=== PATIENT | female | born 1960 | race Caucasian/White ===

== ENCOUNTER 2017-04-15 15:08 | Emergency (ER) | payer OTHER ==
[2017-04-15 15:16] VITALS: BP 154/90; PULSE 98; TEMP 98.2; BMI 41.1
--- NOTE | 2017-04-15 15:23 | PDOC ---
History of Present Illness - General Chief Complaint: Injury Stated Complaint: FALL/ LT FEET PAIN Time Seen by Provider: 04/15/17 15:21 History Source: Patient Exam Limitations: No Limitations - History of Present Illness Initial Comments: CHIEF COMPLAINT: 57 y/o female c/o left ankle pain s/p fall 4 days ago. HISTORY OF PRESENT ILLNESS: The patient admits to a slip and fall 4 days ago. She was able to get up and walk and has been walking since but has pain and swelling in her left foot and ankle. She denies head trauma, LOC, redness/ streaking to affected extremity, numbness/tingling to affected extremity. Vital signs on arrival are notable for pulse of 98. REVIEW OF SYSTEMS: GENERAL/CONSTITUTIONAL: No fever/chills. No weakness. No weight change. HEAD, EYES, EARS, NOSE AND THROAT: No change in vision. No ear pain or discharge. No sore throat. CARDIOVASCULAR: No chest pain or shortness of breath. RESPIRATORY: No cough, wheezing, or hemoptysis. GASTROINTESTINAL: No abd pain, nausea, vomiting, diarrhea. GENITOURINARY: No dysuria, frequency, or change in urination. MUSCULOSKELETAL: +left ankle pain and swelling. No neck or back pain. SKIN: No rash or easy bruising. NEUROLOGIC: No headache, vertigo, loss of consciousness, or loss of sensation. PHYSICAL EXAM: GENERAL: The patient is awake, alert, and fully oriented, in no acute distress. She is ambulatory with a cane. HEAD: Normal with no signs of trauma. ENT: Pupils equal, round and reactive to light, extraocular movements intact, sclera anicteric, conjunctiva clear. Neck supple. LUNGS: Clear to auscultation bilaterally. Normal excursion. No respiratory distress or use of accessory muscles. CV: RRR, S1/S2, no MRG. Cap refill < 2 sec. ABDOMEN: Soft, non-distended, non-tender even to deep palpation, no hepatomegaly or splenomegaly, no masses. EXTREMITIES: Left foot with minimal edema to lateral edge. Pain with palpation of lateral malleolus and arch of left foot. No erythema or streaking in affected extremity. No obvious deformities in affected extremity. Full ROM of left ankle and toes. NEUROLOGICAL: Normal speech, normal gait. CN II-XII grossly intact. PSYCH: Normal mood, normal affect. SKIN: Warm, dry, normal turgor, no rashes or lesions noted. Past History - Past Medical History Allergies/Adverse Reactions: Allergies Allergy/AdvReac Type Severity Reaction Status Date / Time No Known Allergies Allergy Verified 04/15/17 15:16 Home Medications: Ambulatory Orders Metformin HCl [Glucophage] 1 tab PO BID 07/28/14 Duloxetine HCl [Cymbalta -] 2 mg PO HS 05/03/15 Enalapril Maleate [Vasotec] 20 mg PO DAILY 05/03/15 Gabapentin [Neurontin] 300 mg PO HS 05/03/15 Hydroxychloroquine So4 [Plaquenil -] 200 mg PO BID 05/03/15 Nadolol 20 mg PO DAILY 05/03/15 Butalb/Acetaminophen/Caffeine [Ojulcl-Ooiarbsb-Pxeg 50-300-40] 1 tab PO PRN PRN 07/22/15 Famotidine [Pepcid -] 20 mg PO HS #30 tablet 07/23/15 Mag Carb/Al Hydrox/Alginic AC [Gaviscon Liquid] 30 ml PO ASDIR #0 oral.susp Pantoprazole Sodium [Protonix -] 40 mg PO DAILY #30 tablet.ec 07/23/15 Anemia: No Asthma: No Cancer: No Cardiac Disorders: No CVA: No COPD: No CHF: No Dementia: No Diabetes: Yes (NIDDM) GI Disorders: Yes (GASTRIC ULCER, IBS, H.PYLORI) Disorders: No HTN: Yes Hypercholesterolemia: No Liver Disease: No Suicide Attempt (Hx): No Seizures: No Thyroid Disease: No Other medical history: lupus - Surgical History Abdominal Surgery: No Appendectomy: No Cardiac Surgery: No Cholecystectomy: No Lung Surgery: No Neurologic Surgery: No Orthopedic Surgery: No - Psycho/Social/Smoking Cessation Hx Anxiety: No Suicidal Ideation: No Smoking Status: No Smoking History: Never smoked Have you smoked in the past 12 months: No Number of Cigarettes Smoked Daily: 0 If you are a former smoker, when did you quit?: 1993 Information on smoking cessation initiated: No Hx Alcohol Use: No Drug/Substance Use Hx: No Substance Use Type: None Hx Substance Use Treatment: No *Physical Exam - Vital Signs Last Vital Signs Temp Pulse Resp BP Pulse Ox 98.2 F 98 H 18 154/90 100 04/15/17 15:14 04/15/17 15:14 04/15/17 15:14 04/15/17 15:14 04/15/17 15:14 Medical Decision Making - Medical Decision Making A/P: 57 y/o female with left ankle injury. Plan is as follows: 1. left ankle xray Left ankle xray IMPRESSION: (Wet read) No acute fracture. Instructed the patient to follow RICE instructions. Provided EMMY bandaged. Suggested she f/u with her doctor in 1 week if no improvement in symptoms. The patient verbalizes understanding of all instructions, has no further questions and is awaiting discharge. *DC/Admit/Observation/Transfer Diagnosis at time of Disposition: Left ankle pain Qualifiers: Chronicity: acute Qualified Code(s): M25.572 - Pain in left ankle and joints of left foot - Discharge Dispostion Disposition: HOME Condition at time of disposition: Good - Referrals Referrals: Morenita Rios MD [Primary Care Provider] - Call tomorrow Dano Hilton MD [Staff Physician] - 1 week (iF no improvement in symptoms) - Patient Instructions Printed Discharge Instructions: How To Perform RICE (Rest, Ice, Compress, Elevate) Additional Instructions: Discharge INstructions: -Follow RICE instructions -Use EMMY bandage for comfort if needed -Return to the ER with any worsening of symptoms -Call Dr. Hilton and schedule follow up appointment if no improvement in 1 week
== END 2017-04-15 17:53 | disposition home or self-care (01) ==
LOC: JERFT 15:08
DX: M25.572 Pain in left ankle and joints of left foot (principal); W19.XXXA Unspecified fall, initial encounter; Y93.89 Activity, other specified; Y92.89 Other specified places as the place of occurrence of the external cause; I10 Essential (primary) hypertension; E11.9 Type 2 diabetes mellitus without complications; Z79.84 Long term (current) use of oral hypoglycemic drugs
CPT/HCPCS: 73610-TC-LT; 73630-TC-LT; 99281-25

== ENCOUNTER 2018-06-15 10:07 | Emergency (ER) | payer MEDICARE, OTHER ==
[2018-06-15 10:22] VITALS: TEMP 99.3; BMI 41.4
[2018-06-15] MEDS ORDERED: SODIUM CHLORIDE 1,000 ML IV STA (10:44)
[2018-06-15] MEDS ORDERED: CLINDAMYCIN HCL 300 MG CAPSULE PO ONE (10:44)
[2018-06-15] MEDS ORDERED: KETOROLAC TROMETHAMINE 30 MG/1 ML VIAL IVPUSH ONE (10:46)
[2018-06-15] MEDS ORDERED: CLINDAMYCIN HCL 150 MG CAPSULE (FP) ONE (10:58)
[2018-06-15] MEDS ORDERED: KETOROLAC TROMETHAMINE 30 MG/1 ML VIAL ONE (10:58)
--- NOTE | 2018-06-15 11:13 | PDOC ---
History of Present Illness - General History Source: Patient, Old Records Exam Limitations: No Limitations - History of Present Illness Initial Comments: 06/15/18 11:23 The patient is a 58-year-old female, with a significant PMH of HTN, HLD, NIDDM, gastric ulcer, IBS, and H. pylori, who presents to the ED with right-sided facial swelling that began yesterday. The patient went to visit her dentist yesterday for upper tooth pain and was prescribed clindamycin; took 3 doses so far. She woke up this morning and noted that her face was increasingly more swollen. Patient decided to come to the ED for further evaluation. She also reports that she has been experiencing an intermittent pins and needles sensation in the left-side of her chest that is worsened by deep inspiration, nonradiating, nonexertional, and reproducible with palpation. The patient denies shortness of breath, headache and dizziness. Denies fever, chills, cough, nausea, vomiting, diarrhea and constipation. Allergies: NKA Past surgical history: None reported. Social history: No reported. PCP: Dr. Morenita Rios <Emerald Haile - Last Filed: 06/15/18 11:46> - General History Source: Patient, Old Records Exam Limitations: No Limitations <Fernandez Garner - Last Filed: 06/15/18 12:13> - General Chief Complaint: Chest Pain Stated Complaint: CHEST PAIN Time Seen by Provider: 06/15/18 10:34 Past History <Emerald Haile - Last Filed: 06/15/18 11:46> - Past Medical History Anemia: No Asthma: No Cancer: No Cardiac Disorders: No CVA: No COPD: No CHF: No Dementia: No Diabetes: Yes (NIDDM) GI Disorders: Yes (GASTRIC ULCER, IBS, H.PYLORI) Disorders: No HTN: Yes Hypercholesterolemia: No Liver Disease: No Seizures: No Thyroid Disease: No Other medical history: LUPUS - Surgical History Abdominal Surgery: No Appendectomy: No Cardiac Surgery: No Cholecystectomy: No Lung Surgery: No Neurologic Surgery: No Orthopedic Surgery: No - Suicide/Smoking/Psychosocial Hx Smoking Status: No Smoking History: Never smoked Have you smoked in the past 12 months: No Number of Cigarettes Smoked Daily: 0 If you are a former smoker, when did you quit?: 1993 Hx Alcohol Use: No Drug/Substance Use Hx: No Substance Use Type: None Hx Substance Use Treatment: No <Fernandez Garner - Last Filed: 06/15/18 12:13> - Past Medical History Allergies/Adverse Reactions: Allergies Allergy/AdvReac Type Severity Reaction Status Date / Time No Known Allergies Allergy Verified 06/15/18 10:20 Home Medications: Ambulatory Orders Metformin HCl [Glucophage] 1 tab PO BID 07/28/14 Enalapril Maleate [Vasotec] 20 mg PO DAILY 05/03/15 Gabapentin [Neurontin] 800 mg PO TID 05/03/15 Hydroxychloroquine So4 [Plaquenil -] 200 mg PO BID 05/03/15 Nadolol 20 mg PO DAILY 05/03/15 Mag Carb/Aluminum Hydrox/Algin [Gaviscon Liquid] 30 ml PO ASDIR #0 oral.susp Naproxen 500 mg PO BID PRN #20 tablet 06/15/18 Review of Systems - Review of Systems Able to Perform ROS?: Yes Comments:: 06/15/18 11:23 GENERAL/CONSTITUTIONAL: No fever or chills. No weakness. HEAD, EYES, EARS, NOSE AND THROAT: No change in vision. No ear pain or discharge. No sore throat. CARDIOVASCULAR: (+)Chest pain. No shortness of breath. RESPIRATORY: No cough, wheezing, or hemoptysis. GASTROINTESTINAL: No nausea, vomiting, diarrhea or constipation. GENITOURINARY: No dysuria, frequency, or change in urination. MUSCULOSKELETAL: No joint or muscle swelling or pain. No neck or back pain. SKIN: (+)Right-sided facial induration. NEUROLOGIC: No headache, vertigo, loss of consciousness, or change in strength/ sensation. ENDOCRINE: No increased thirst. No abnormal weight change. HEMATOLOGIC/LYMPHATIC: No anemia, easy bleeding, or history of blood clots. ALLERGIC/IMMUNOLOGIC: No hives or skin allergy. <Emerald Haile - Last Filed: 06/15/18 11:46> *Physical Exam - Vital Signs Last Vital Signs Temp Pulse Resp BP Pulse Ox 99.3 F 82 18 156/73 99 06/15/18 10:11 06/15/18 10:11 06/15/18 10:11 06/15/18 10:11 06/15/18 10:42 - Physical Exam Comments: 06/15/18 11:26 GENERAL: Awake, alert, and fully oriented, in no acute distress HEAD: No signs of trauma EYES: PERRLA, EOMI, sclera anicteric, conjunctiva clear ENT: Auricles normal inspection, hearing grossly normal, nares patent, oropharynx clear without exudates. Moist mucosa NECK: Normal ROM, supple, no lymphadenopathy, JVD, or masses LUNGS: Breath sounds equal, clear to auscultation bilaterally. No wheezes, and no crackles HEART: (+)Reproducible chest pain to palpation. Regular rate and rhythm, normal S1 and S2, no murmurs, rubs or gallops ABDOMEN: Soft, nontender, normoactive bowel sounds. No guarding, no rebound. No masses EXTREMITIES: Normal range of motion, no edema. No clubbing or cyanosis. No cords, erythema, or tenderness NEUROLOGICAL: Cranial nerves II through XII grossly intact. Normal speech. SKIN: (+)Right-sided facial induration, no purulence, 4x4 in size. Warm, Dry, normal turgor. <Emerald Haile - Last Filed: 06/15/18 11:46> - Vital Signs Last Vital Signs Temp Pulse Resp BP Pulse Ox 99.3 F 82 18 156/73 99 06/15/18 10:11 06/15/18 10:11 06/15/18 10:11 06/15/18 10:11 06/15/18 10:42 <Fernandez Garner - Last Filed: 06/15/18 12:13> Heart Score/ECG Review #1 ECG reviewed & interpreted by me at: 10:25 06/15/18 11:46 NSR 82, no std/set, normal axis, normal intervals, QTC 464 msec, poor R wave progression <Fernandez Garner - Last Filed: 06/15/18 12:13> ED Treatment Course - LABORATORY CBC & Chemistry Diagram: 06/15/18 10:50 06/15/18 10:50 - Medications Given in the ED: ED Medications Discontinued Medications Generic Name Dose Route Start Last Admin Trade Name Freq PRN Reason Stop Dose Admin Clindamycin HCl 300 mg 06/15/18 10:44 06/15/18 11:09 Cleocin - PO 06/15/18 10:45 300 mg ONCE ONE Administration Ketorolac Tromethamine 30 mg 06/15/18 10:46 06/15/18 11:09 Toradol Injection - IVPUSH 06/15/18 10:47 30 mg ONCE ONE Administration <Emerald Haile - Last Filed: 06/15/18 11:46> - LABORATORY CBC & Chemistry Diagram: 06/15/18 10:50 06/15/18 10:50 - RADIOLOGY Radiology Studies Ordered: Category Date Time Status CHEST X-RAY PORTABLE* [RAD] Stat Radiology 06/15/18 10:50 Ordered <Annie Garnerel - Last Filed: 06/15/18 12:13> Medical Decision Making - Medical Decision Making 06/15/18 11:06 A portion of this note was written by my scribe, under my supervision. Vital Signs Temp Pulse Resp BP Pulse Ox 99.3 F 82 18 156/73 99 06/15/18 10:11 06/15/18 10:11 06/15/18 10:11 06/15/18 10:11 06/15/18 10:42 58-year-old female with past medical history of diabetes, lupus on immunosuprresants presents with right facial induration since yesterday. Patient did not have any recent dental work done but noted that he was developing some right facial swelling. She seen the dentist yesterday who prescribed clindamycin and has taken her dose of medications. However, progressive swollen. No fevers or chills. Took 3 doses of clindamycin and came to the ER. Also, patient reported an atypical left sided chest pain with intermittent discomfort. States is tingling and comes and goes. Not exertional. Reproducible with palpation. No cough. 06/15/18 11:35 I have low suspicion for acute coronary syndrome and I suspect that this is likely atypical chest pain. I have more concerns for patient's facial infection. I do not suspect an abscess but do suspect facial cellulitis. Patient is immunosuppressed and already taking oral antibiotics.. We'll obtain labs including lactic acid and a blood culture. We'll need to potentially admit the patient given her immunosuppressant status and progression of disease despite outpatient watch. 06/15/18 12:12 CBC, BMP 06/15/18 10:50 06/15/18 10:50 CMP Sodium 140 mmol/L (136-145) 06/15/18 10:50 Potassium 4.1 mmol/L (3.5-5.1) 06/15/18 10:50 Chloride 108 mmol/L (98-107) H 06/15/18 10:50 Carbon Dioxide 25 mmol/L (21-32) 06/15/18 10:50 Anion Gap 7 MMOL/L (8-16) L 06/15/18 10:50 BUN 11 mg/dL (7-18) 06/15/18 10:50 Creatinine 0.8 mg/dL (0.55-1.3) 06/15/18 10:50 Creat Clearance w eGFR > 60 (>60) 06/15/18 10:50 Random Glucose 132 mg/dL (74-106) H 06/15/18 10:50 Lactic Acid 1.4 mmol/L (0.4-2.0) 06/15/18 10:56 Calcium 8.4 mg/dL (8.5-10.1) L 06/15/18 10:50 Total Bilirubin 0.9 mg/dL (0.2-1.0) 06/15/18 10:50 AST 26 U/L (15-37) 06/15/18 10:50 ALT 24 U/L (13-61) 06/15/18 10:50 Alkaline Phosphatase 85 U/L (45-117) 06/15/18 10:50 Creatine Kinase 78 IU/L (26-192) 06/15/18 10:50 Troponin I < 0.02 ng/ml (0.00-0.05) 06/15/18 10:50 Total Protein 7.5 g/dl (6.4-8.2) 06/15/18 10:50 Albumin 3.4 g/dl (3.4-5.0) 06/15/18 10:50 Urine Test Results Urine Color Yellow 06/15/18 10:56 Urine Appearance Clear 06/15/18 10:56 Urine pH 7.0 (5.0-8.0) 06/15/18 10:56 Ur Specific [place] 1.023 (1.001-1.035) 06/15/18 10:56 Urine Protein Negative (NEGATIVE) 06/15/18 10:56 Urine Glucose (UA) Negative (NEGATIVE) 06/15/18 10:56 Urine Ketones Negative (NEGATIVE) 06/15/18 10:56 Urine Blood 2+ (NEGATIVE) H 06/15/18 10:56 Urine Nitrite Negative (NEGATIVE) 06/15/18 10:56 Urine Bilirubin Negative (<2.0 mg/dL) 06/15/18 10:56 Ur Leukocyte Esterase Negative (NEGATIVE) 06/15/18 10:56 Ur Epithelial Cells Few /HPF (FEW) 06/15/18 10:56 Urine Mucus Rare 06/15/18 10:56 Chest xray reviewed. No acute findings. The patient likely has very mild facial cellulitis. She is nontoxic appearing with some mild induration. No clinical findings for fluctuance. Patient's troponin is negative. Again, I have very little suspicion for acute coronary syndrome. Given that the patient only taken 3 doses of clindamycin, I advised that the patient should continue with the clindamycin and to observe her course. If the symptoms worsen over the next 24-48 hours that she should return to the ER. Patient is agreement with the plan and like to go home. <Fernandez Garner - Last Filed: 06/15/18 12:13> *DC/Admit/Observation/Transfer - Attestations Scribe Attestion: 06/15/18 11:25 Documentation prepared by Emerald Haile, acting as phlebotomist medical lab assistant for Fernandez Garner MD. <Emerald Haile - Last Filed: 06/15/18 11:46> - Discharge Dispostion Decision to Admit order: No <Fernandez Garner - Last Filed: 06/15/18 12:13> Diagnosis at time of Disposition: Atypical chest pain Cellulitis Qualifiers: Site of cellulitis: face Qualified Code(s): L03.211 - Cellulitis of face - Discharge Dispostion Disposition: HOME Condition at time of disposition: Stable - Prescriptions Prescriptions: Naproxen 500 mg PO BID PRN #20 tablet PRN Reason: Pain - Referrals Referrals: Morenita Rios MD [Primary Care Provider] - - Patient Instructions Printed Discharge Instructions: DI for Cellulitis -- Adult, DI for Atypical Chest Pain Additional Instructions: Please continue taking your clindamycin as prescribed by your dentist. Please complete its course. Take 500 mg naproxen every 12 hours as needed for pain. Please drink plenty of fluids. If you notice any worsening symptoms over the course of 24 to 48 hours, please call your doctor or return to the ER. - Post Discharge Activity
[2018-06-15 11:24] LABS: HCG,QUALITATIVE URINE Negative
[2018-06-15 11:25] LABS: URINE APPEARANCE CLEAR; URINE BILIRUBIN NEGATIVE (<2.0 mg/dL); URINE COLOR YELLOW; URINE GLUCOSE (UA) NEGATIVE (NEGATIVE); URINE KETONE NEGATIVE (NEGATIVE); URINE LEUK ESTERASE NEGATIVE (NEGATIVE); URINE NITRITE NEGATIVE (NEGATIVE); URINE PROTEIN NEGATIVE (NEGATIVE); URINE UROBILINOGEN NEGATIVE mg/dL (0.2-1.0)
[2018-06-15 11:29] LABS: BASO % 0.3 % (0-2.0); EOS % 0.7 % (0-4.5); HEMATOCRIT 42.3 % (32.4-45.2); HEMOGLOBIN 13.7 GM/dL (10.7-15.3); LYMPH % 14.7 % (8-40); MCH 26.5 pg (25.7-33.7); MCHC 32.4 g/dl (32.0-36.0); MEAN CELL VOLUME 81.9 fl (80-96); MEAN PLT VOLUME 9.9 fl (7.5-11.1); MONO % 6.8 % (3.8-10.2); NEUT % 77.5 % (42.8-82.8); PLATELET COUNT 141 K/MM3 (134-434); RBC 5.16 M/mm3 (3.60-5.2); RDW 14.2 % (11.6-15.6)
[2018-06-15 11:33] LABS: EPI CELLS FEW /HPF (FEW); URINE MUCUS RARE; YEAST RARE
[2018-06-15 11:44] LABS: ALBUMIN 3.4 g/dl (3.4-5.0); ANION GAP 7 MMOL/L (8-16); BLOOD UREA NITROGEN 11 mg/dL (7-18); CALCIUM 8.4 mg/dL (8.5-10.1); CHLORIDE 108 mmol/L (98-107); CO2 25 mmol/L (21-32); CREATININE 0.8 mg/dL (0.55-1.3); GLUCOSE,RANDOM 132 mg/dL (74-106); POTASSIUM 4.1 mmol/L (3.5-5.1); SGOT/AST 26 U/L (15-37); SGPT/ALT 24 U/L (13-61); SODIUM 140 mmol/L (136-145)
[2018-06-15 11:48] LABS: ALK PHOS 85 U/L (45-117); BILIRUBIN,TOTAL 0.9 mg/dL (0.2-1.0); TOT PROT 7.5 g/dl (6.4-8.2)
[2018-06-15 12:32] VITALS: BP 136/81; PULSE 74
--- NOTE | 2018-06-16 21:36 | EKG ---
Test Reason : Blood Pressure : / mmHG Vent. Rate : 082 BPM Atrial Rate : 082 BPM P-R Int : 164 ms QRS Dur : 086 ms QT Int : 398 ms P-R-T Axes : 026 -25 008 degrees QTc Int : 464 ms POOR DATA QUALITY, INTERPRETATION MAY BE ADVERSELY AFFECTED NORMAL SINUS RHYTHM POSSIBLE ANTERIOR INFARCT , AGE UNDETERMINED ABNORMAL ECG WHEN COMPARED WITH ECG OF 16-APR-2013 11:01, NO SIGNIFICANT CHANGE WAS FOUND Confirmed by SHAI CAMACHO MD ([id number]) on 06/16/2018 9:36:48 PM Referred By: Confirmed By:SHAI CAMACHO MD
== END 2018-06-15 12:32 | disposition home or self-care (01) ==
LOC: JER 10:07
PROC: 3E0333Z Introduction of Anti-inflammatory into Peripheral Vein, Percutaneous Approach (ICD-10-PCS; principal; 2018-06-15)
DX: R07.89 Other chest pain (principal); L03.211 Cellulitis of face
CPT/HCPCS: 36415; 71045-TC-FY; 80053; 81003; 81015; 82550; 83605; 84484; 84703; 85025; 87040; 87086; 93005; 93010; 96374; 99285-25; J7030

== ENCOUNTER → 2019-04-16 | Day surgery (SDC) | payer MEDICARE, OTHER ==
--- NOTE | 2019-04-17 15:29 | PATH ---
Cytology Non-Gynecological Report Patient Name: GUILLAUME PUGA [facility]. Rec. #: [id number] /Age/Gender: 1960 (Age: 59) / F Account: [id number] Location: RADIOLOGY INTER Taken: 04/16/2019 Received: 04/16/2019 Reported: 04/17/2019 Physicians: Kiera Finnegan M.D. Specimen(s) Received LEFT THYROID LOBE Clinical History Left lobe, 1.23 x 1.17 x 1.19 cm Final Diagnosis THYROID, LEFT LOBE, FINE NEEDLE ASPIRATION: SATISFACTORY FOR EVALUATION. BETHESDA CLASS II: BENIGN. CYTOLOGIC FINDINGS ARE CONSISTENT WITH A BENIGN FOLLICULAR NODULE. SMALL FOLLICULAR CELLS AND ABUNDANT THIN COLLOID PRESENT. Electronically Signed Maya Florentino M.D. Gross Description Received are eight direct smears, four of which are air-dried and Diff-Quik stained, and four of which are alcohol fixed and Pap stained. Also received is 20 ml of bloody formalin from which one cellblock is prepared.
== END | disposition home or self-care (01) ==
LOC: JRADIR 09:22
PROVIDERS: ATTEND Internal Medicine
PROC: 0G9G3ZX Drainage of Left Thyroid Gland Lobe, Percutaneous Approach, Diagnostic (ICD-10-PCS; principal; 2019-04-16)
DX: E04.1 Nontoxic single thyroid nodule (principal)
CPT/HCPCS: 76942; 88173; 88305-TC

== ENCOUNTER 2019-07-02 12:27 | Inpatient (IN) | payer MEDICARE, OTHER ==
--- NOTE | 2019-07-02 12:32 | PDOC ---
Rapid Medical Evaluation Time Seen by Provider: 07/02/19 12:29 Medical Evaluation: Allergies Allergy/AdvReac Type Severity Reaction Status Date / Time No Known Allergies Allergy Verified 06/15/18 10:20 07/02/19 12:29 CC: sent by PMD for hernia evaluation PE: Obese abdomen. Orders: labs, urine Patient will proceed to ER for further evaluation. Discharge Disposition - Diagnosis Abdominal pain - Referrals - Patient Instructions - Post Discharge Activity
[2019-07-02 13:38] LABS: BASO % 1.2 % (0-2.0); EOS % 0.5 % (0-4.5); HEMATOCRIT 42.8 % (32.4-45.2); HEMOGLOBIN 14.1 GM/dL (10.7-15.3); LYMPH % 21.3 % (8-40); MCHC 32.9 g/dl (32.0-36.0); MEAN CELL VOLUME 82.2 fl (80-96); MEAN PLT VOLUME 9.8 fl (7.5-11.1); MONO % 7.3 % (3.8-10.2); NEUT % 69.7 % (42.8-82.8); PLATELET COUNT 182 K/MM3 (134-434); RBC 5.21 M/mm3 (3.60-5.2); RDW 14.7 % (11.6-15.6); WHITE BLOOD COUNT 6.2 K/mm3 (4.0-10.0)
[2019-07-02 13:45] LABS: INR 0.99 (0.83-1.09); PROTHROMBIN TIME (PATIENT) 11.7 SEC (9.7-13.0)
[2019-07-02] MEDS ORDERED: SODIUM CHLORIDE 1,000 ML IV SCH (13:45)
--- NOTE | 2019-07-02 13:56 | PDOC ---
History of Present Illness - General Chief Complaint: Pain Stated Complaint: SENT BY PCP/ HERNIA Time Seen by Provider: 07/02/19 12:29 History Source: Patient, Old Records Exam Limitations: No Limitations - History of Present Illness Initial Comments: HPI: 59 y/o female presenting to [facility] ER complaining of periumbilical pain for the past week. Described as sharp in nature. Worse when coughing. Also noticed a small mass in the area. Outpatient CTAB was obtained yesterday by pt's PCP. Sent to ED today after scan revealed fat and fluid containing umbilical hernia. Denies nausea, vomiting, diarrhea, bloody stool, or change in stool color. Last BM was this morning. Last oral intake at approx. 08:00 this morning. Medical Hx: - HTN - HLD - NIDDM - Gastric ulcer - IBS - H. pylori Surgical Hx: - - Remote history of previous hernia repair Review of Systems: In addition to that documented in the HPI above, the additional ROS was obtained : Constitutional- Denies fevers or chills Head- Denies vision changes ENMT- Denies sore throat CV- Denies chest pain Resp- Denies SOB GI- Denies vomiting or diarrhea - Denies painful urination, hematuria MSK- Denies recent trauma Skin- Denies new rashes Neuro- Denies new numbness or tingling or weakness Endocrine- Denies polyuria Heme- Denies bleeding or bruising Physical Examination: Constitutional- Adult female in no acute distress or obvious discomfort. Morbidly obese body habitus. Found semi-fowlers on hospital hallway bed. Answered all questions appropriately and completely. Speech was non-labored, non -pressured. Head- Normocephalic. No obvious external signs of trauma. Cardiovascular / Chest- Regular rate and regular rhythm. No murmur, rubs, clicks , or gallops. Peripheral pulses- radial pulses full. Respiratory- Breathing unlabored. Equal chest rise and fall. Clear to auscultation bilaterally. No stridor, no wheezing, no rhonchi. Gastrointestinal- abdomen exam limited by large pannus. Tender periumbilically with palpable mass. No pulsatile masses. No overlying skin lesions or obvious signs of trauma. Post surgical scar to midline overlying supra-pubic region. Neuro- Alert and oriented x4. Moving all four extremities spontaneously. Skin- Warm, dry, and intact. Psych- Affect- appropriate. Mood- normal. MDM: *Reviewed vital signs, nursing notes, and prior visit documentation (if available). 59 y/o female presenting with periumbilical pain and umbilical hernia noted on outpatient CTAB. Afebrile. Vitals remarkable for mild tachycardia. Ordered LR drip. Will trend. Physical exam as described above. Unable to reduce hernia. Will obtain surgical consult. Ordered pre-ob labs. 02 Jul 2019 14:15 In person discussion with ABRAHAM Allison. Verbally appraised of the pts HPI, ED course, and current plan of management. Evaluated the pt in the department. Will discuss pt with Dr. Ballard for possible surgical intervention tomorrow. 02 Jul 2019 14:[address] Rios. Verbally appraised of the pts HPI, ED course, and current plan of management. Will admit pt to med/ surg. Edwin Wetson M.D., PGY2 Emergency Medicine Resident Past History - Past Medical History Allergies/Adverse Reactions: Allergies Allergy/AdvReac Type Severity Reaction Status Date / Time No Known Allergies Allergy Verified 07/02/19 12:33 Home Medications: Ambulatory Orders Metformin HCl [Glucophage] 1 tab PO BID 07/28/14 Enalapril Maleate [Vasotec] 20 mg PO DAILY 05/03/15 Gabapentin [Neurontin] 800 mg PO TID 05/03/15 Hydroxychloroquine So4 [Plaquenil -] 200 mg PO BID 05/03/15 Nadolol 20 mg PO DAILY 05/03/15 Mag Carb/Aluminum Hydrox/Algin [Gaviscon Liquid] 30 ml PO ASDIR #0 oral.susp Naproxen 500 mg PO BID PRN #20 tablet 06/15/18 Anemia: No Asthma: No Cancer: No Cardiac Disorders: No CVA: No COPD: No CHF: No Dementia: No Diabetes: Yes (NIDDM) GI Disorders: Yes (GASTRIC ULCER, IBS, H.PYLORI) Disorders: No HTN: Yes Hypercholesterolemia: No Liver Disease: No Seizures: No Thyroid Disease: No Other medical history: obesity - Surgical History Abdominal Surgery: No Appendectomy: No Cardiac Surgery: No Cholecystectomy: No Lung Surgery: No Neurologic Surgery: No Orthopedic Surgery: No - Psycho Social/Smoking Cessation Hx Smoking Status: No Smoking History: Never smoked Have you smoked in the past 12 months: No Number of Cigarettes Smoked Daily: 0 If you are a former smoker, when did you quit?: 1993 Information on smoking cessation initiated: No Hx Alcohol Use: No Drug/Substance Use Hx: No Substance Use Type: None Hx Substance Use Treatment: No *Physical Exam - Vital Signs Last Vital Signs Temp Pulse Resp BP Pulse Ox 98 F 113 H 19 129/94 99 07/02/19 12:30 07/02/19 12:30 07/02/19 12:30 07/02/19 12:30 07/02/19 12:30 ED Treatment Course - LABORATORY CBC & Chemistry Diagram: 07/02/19 13:27 07/02/19 13:27 - ADDITIONAL ORDERS Additional order review: Laboratory Results 07/02/19 13:27 PT with INR 11.70 INR 0.99 07/02/19 13:27 RBC 5.21 H MCV 82.2 MCHC 32.9 RDW 14.7 MPV 9.8 Neutrophils % 69.7 Lymphocytes % 21.3 D Monocytes % 7.3 Eosinophils % 0.5 Basophils % 1.2 - RADIOLOGY Radiology Studies Ordered: Category Date Time Status CHEST PA & LAT [RAD] Stat Radiology 07/02/19 13:07 Ordered - Medications Given in the ED: ED Medications Discontinued Medications Generic Name Dose Route Start Last Admin Trade Name Geneq PRN Reason Stop Dose Admin Sodium Chloride 1,000 mls @ 100 mls/hr 07/02/19 13:45 07/02/19 13:53 Normal Saline - IV Not Given ASDIR [facility] Discharge - Discharge Information Problems reviewed: Yes Clinical Impression/Diagnosis: Umbilical hernia without obstruction and without gangrene Abdominal pain Qualifiers: Abdominal location: periumbilical Qualified Code(s): R10.33 - Periumbilical pain Condition: Stable - Admission Yes - Follow up/Referral - Patient Discharge Instructions - Post Discharge Activity
[2019-07-02] MEDS ORDERED: LACTATED RINGERS SOLUTION 1,000 ML/1,000 ML INFUS.BAG IV SCH ×2 (14:00→14:41)
[2019-07-02 14:02] LABS: ALBUMIN 3.8 g/dl (3.4-5.0); BILIRUBIN,TOTAL 0.6 mg/dL (0.2-1); BLOOD UREA NITROGEN 13.8 mg/dL (7-18); CALCIUM 8.9 mg/dL (8.5-10.1); CREATININE 0.8 mg/dL (0.55-1.3); POTASSIUM 3.9 mmol/L (3.5-5.1); TOT PROT 7.8 g/dl (6.4-8.2)
--- NOTE | 2019-07-02 14:10 | PDOC ---
Attending Attestation - Resident Resident Name: Edwin Weston - ED Attending Attestation I have performed the following: I have examined & evaluated the patient, The case was reviewed & discussed with the resident, I agree w/resident's findings & plan, Exceptions are as noted - HPI HPI: 07/02/19 59-year-old female complains of atraumatic periumbilical pain and swelling. Patient underwent an outpatient CT 24 hours previously which revealed a fat and air containing umbilical hernia without presence of bowel. - Physicial Exam PE: 07/02/19 14:09 Alert, obese, in no distress normocephalic, atraumatic PERRLA, EOMI, no scleral icterus CTA RRR Abdomen soft, nondistended, nonreducible incarcerated umbilical hernia is noted + - Medical Decision Making 07/02/19 14:10 Patient is a 59-year-old female who presents with incarcerated umbilical hernia containing fat and air only. Will consult surgery. We will keep n.p.o. Will hydrate. Likely admission to the OR.
--- NOTE | 2019-07-02 14:37 | CONSULT ---
- Consultation REQUESTING PROVIDER: CONSULT REQUEST: We have been asked to surgically evaluate this patient for Umbilical hernia/abd pain PCP: Morenita Ross HISTORY OF PRESENT ILLNESS: 59yo F presented to the ED after complaining of abd pain for the past week, she had a CT abd/pel and was told that she had an incarcerated to the hernia, and was told to go to the ED as her pain wasn't improving. Pt states that she has pain around her umbilicus that is worse with standing and straining. Pt denies any n/v, fever, chills. Pt had previous hernia repair 31 years ago "possibly around her scar". PMHx: HTN, DM, PSHx: , ventral hernia repair Home Medications Medication Instructions Recorded Metformin HCl [Glucophage] 1 tab PO BID 07/28/14 Enalapril Maleate [Vasotec] 20 mg PO DAILY 05/03/15 Gabapentin [Neurontin] 800 mg PO TID 05/03/15 Hydroxychloroquine So4 [Plaquenil 200 mg PO BID 05/03/15 -] Nadolol 20 mg PO DAILY 05/03/15 Mag Carb/Aluminum Hydrox/Algin 30 ml PO ASDIR #0 oral.susp 07/23/15 [Gaviscon Liquid] Naproxen 500 mg PO BID PRN #20 tablet 06/15/18 Allergies Allergy/AdvReac Type Severity Reaction Status Date / Time No Known Allergies Allergy Verified 07/02/19 12:33 REVIEW OF SYSTEMS: CONSTITUTIONAL: Absent: fever, chills, diaphoresis, generalized weakness, malaise, loss of appetite, weight change CARDIOVASCULAR: Absent: chest pain, syncope RESPIRATORY: Absent: cough, shortness of breath GASTROINTESTINAL: Absent: abdominal distension, nausea, vomiting, diarrhea, constipation, melena , hematochezia PHYSICAL EXAM: GENERAL: Awake, alert, and fully oriented, in no acute distress. HEAD: Normal with no signs of trauma. EYES: PERRL, sclera anicteric, conjunctiva clear. NECK: Normal ROM, supple without lymphadenopathy, JVD, or masses. LUNGS: Breathing comfortably, No accessory muscle use. ABDOMEN: Soft, epigastric tenderness, 1.5cm umbilical defect, not distended, no guarding, no rebound, no masses. No organomegaly. MUSCULOSKELETAL: Normal ROM at all joints. No bony deformities or tenderness. No CVA tenderness. NEUROLOGICAL: Normal speech, gait not observed. PSYCH: Cooperative. Good eye contact. Appropriate mood and affect. SKIN: Warm, dry, normal turgor, no rashes or lesions noted. Vital Signs Temperature 98 F 07/02/19 12:30 Pulse Rate 113 H 07/02/19 12:30 Respiratory Rate 19 07/02/19 12:30 Blood Pressure 129/94 07/02/19 12:30 O2 Sat by Pulse Oximetry (%) 99 07/02/19 12:30 Lab Results WBC 6.2 K/mm3 (4.0-10.0) 07/02/19 13:27 RBC 5.21 M/mm3 (3.60-5.2) H 07/02/19 13:27 Hgb 14.1 GM/dL (10.7-15.3) 07/02/19 13:27 Hct 42.8 % (32.4-45.2) 07/02/19 13:27 MCV 82.2 fl (80-96) 07/02/19 13:27 MCHC 32.9 g/dl (32.0-36.0) 07/02/19 13:27 RDW 14.7 % (11.6-15.6) 07/02/19 13:27 Plt Count 182 K/MM3 (134-434) 07/02/19 13:27 Sodium 143 mmol/L (136-145) 07/02/19 13:27 Potassium 3.9 mmol/L (3.5-5.1) 07/02/19 13:27 Chloride 110 mmol/L (98-107) H 07/02/19 13:27 Carbon Dioxide 25 mmol/L (21-32) 07/02/19 13:27 Anion Gap 9 MMOL/L (8-16) 07/02/19 13:27 BUN 13.8 mg/dL (7-18) 07/02/19 13:27 Creatinine 0.8 mg/dL (0.55-1.3) 07/02/19 13:27 Random Glucose 141 mg/dL (74-106) H 07/02/19 13:27 Calcium 8.9 mg/dL (8.5-10.1) 07/02/19 13:27 INR 0.99 (0.83-1.09) 07/02/19 13:27 CT abd/pel: Fat containing umbilical hernia with evidence for incarceration. No bowel is contained within the hernia sac. Problem List - Problems (1) Incarcerated umbilical hernia Assessment/Plan: Plan -will schedule pt for umbilical hernia repair tomorrow. -npo after midnight -medical clearance Pt seen and discussed with Dr. Ballard who agrees with plan. Code(s): K42.0 - UMBILICAL HERNIA WITH OBSTRUCTION, WITHOUT GANGRENE
[2019-07-02] MEDS ORDERED: ACETAMINOPHEN 500 MG TABLET (FP) PO ONE (15:18)
[2019-07-02 17:19] VITALS: BMI 42.3
[2019-07-02] MEDS ORDERED: GABAPENTIN 400 MG CAPSULE (FP) PO ONE (20:48)
--- NOTE | 2019-07-02 22:37 | HP ---
Admitting History and Physical - Primary Care Physician PCP: Morenita Rios - Admission Chief Complaint: abd pain History of Present Illness: HPI: 59 y/o female presenting to [facility] ER complaining of periumbilical pain for the past week. Described as sharp in nature. Worse when coughing. Also noticed a small mass in the area. Outpatient CTAB was obtained yesterday by pt's PCP. Sent to ED today after scan revealed fat and fluid containing incarcerated umbilical hernia. Denies nausea, vomiting, diarrhea, bloody stool, or change in stool color. Last BM was this morning. Last oral intake at approx. 08:00 this morning. Medical Hx: - HTN - HLD - NIDDM - Gastric ulcer - IBS - H. pylori Surgical Hx: - - Remote history of previous hernia repair Pt examined by me in the ER she had regular diet today morning-- no difficulty She has persistent pain in abdomen Has normal bm History Source: Patient, Caregiver - Past Medical History Cardiovascular: Yes: HTN, Hyperlipdemia ...LMP: 07/01/08 ...: No - Smoking History Smoking history: Never smoked Have you smoked in the past 12 months: No Aproximately how many cigarettes per day: 0 If you are a former smoker, when did you quit?: 1993 - Alcohol/Substance Use Hx Alcohol Use: No Home Medications - Allergies Allergies/Adverse Reactions: Allergies Allergy/AdvReac Type Severity Reaction Status Date / Time No Known Allergies Allergy Verified 07/02/19 12:33 - Home Medications Home Medications: Ambulatory Orders Metformin HCl [Glucophage] 1 tab PO BID 07/28/14 Enalapril Maleate [Vasotec] 20 mg PO DAILY 05/03/15 Gabapentin [Neurontin] 800 mg PO TID 05/03/15 Hydroxychloroquine So4 [Plaquenil -] 200 mg PO BID 05/03/15 Nadolol 20 mg PO DAILY 05/03/15 Mag Carb/Aluminum Hydrox/Algin [Gaviscon Liquid] 30 ml PO ASDIR #0 oral.susp Sennosides [Senna] 8.6 mg PO HS #30 tablet 07/05/19 oxyCODONE HCL [Roxicodone -] 5 mg PO Q8H PRN #14 tablet MDD 3 07/05/19 Review of Systems - Review of Systems Gastrointestinal: reports: Abdominal Pain. denies: Constipation, Nausea, Vomiting Physical Examination Vital Signs: Vital Signs Temperature 98.1 F 07/02/19 19:45 Pulse Rate 74 07/02/19 19:45 Respiratory Rate 16 07/02/19 19:45 Blood Pressure 127/58 L 07/02/19 19:45 O2 Sat by Pulse Oximetry (%) 96 07/02/19 17:19 Constitutional: Yes: No Distress, Calm Cardiovascular: Yes: Regular Rate and Rhythm Respiratory: Yes: CTA Bilaterally Gastrointestinal: Yes: Normal Bowel Sounds, Soft, Tenderness Edema: No Labs: CBC, BMP 07/02/19 13:27 07/02/19 13:27 Imaging - Results Chest X-ray: Image Reviewed Problem List - Problems (1) Abdominal pain Code(s): R10.9 - UNSPECIFIED ABDOMINAL PAIN Qualifiers: Abdominal location: periumbilical Qualified Code(s): R10.33 - Periumbilical pain (2) HTN (hypertension) Code(s): I10 - ESSENTIAL (PRIMARY) HYPERTENSION (3) Incarcerated umbilical hernia Code(s): K42.0 - UMBILICAL HERNIA WITH OBSTRUCTION, WITHOUT GANGRENE (4) Morbid obesity with BMI of 40.0-44.9, adult Code(s): E66.01 - MORBID (SEVERE) OBESITY DUE TO EXCESS CALORIES; Z68.41 - BODY MASS INDEX (BMI) 40.0-44.9, ADULT Assessment/Plan PLAN Pt was evaluated by Surgery She will be going to OR tomorrow IV fluids NPO after midnight liquid diet for now pain control continue with BP meds
[2019-07-03 08:14] LABS: BASO % 0.4 % (0-2.0); EOS % 1.1 % (0-4.5); HEMATOCRIT 38.4 % (32.4-45.2); HEMOGLOBIN 12.4 GM/dL (10.7-15.3); LYMPH % 27.3 % (8-40); MCH 26.8 pg (25.7-33.7); MCHC 32.4 g/dl (32.0-36.0); MEAN CELL VOLUME 82.7 fl (80-96); MEAN PLT VOLUME 9.6 fl (7.5-11.1); MONO % 10.5 % (3.8-10.2); NEUT % 60.7 % (42.8-82.8); PLATELET COUNT 144 K/MM3 (134-434); RBC 4.65 M/mm3 (3.60-5.2); RDW 14.4 % (11.6-15.6); WHITE BLOOD COUNT 4.4 K/mm3 (4.0-10.0)
[2019-07-03 08:53] LABS: ALBUMIN 3.1 g/dl (3.4-5.0); BILIRUBIN,TOTAL 0.9 mg/dL (0.2-1); BLOOD UREA NITROGEN 12.8 mg/dL (7-18); CALCIUM 8.4 mg/dL (8.5-10.1); CREATININE 0.7 mg/dL (0.55-1.3); POTASSIUM 3.9 mmol/L (3.5-5.1); TOT PROT 6.6 g/dl (6.4-8.2)
[2019-07-03] MEDS ORDERED: ENALAPRIL MALEATE 10 MG TABLET (FP) PO SCH (10:00)
[2019-07-03] MEDS ORDERED: NADOLOL 20 MG TABLET (FP) PO SCH (10:00)
--- NOTE | 2019-07-03 13:12 | PN ---
Progress Note (short form) - Note Progress Note: pt examined on the floors Her at bedside She is not in distress waiting to go to OR today Vital Signs - 24 hr 07/02/19 07/02/19 07/02/19 15:25 17:19 19:45 Temperature 98 F 98.1 F Pulse Rate 83 74 Pulse Rate [#1] 86 Respiratory 19 16 Rate Respiratory 18 Rate [#1] Blood Pressure 148/67 127/58 L Blood Pressure 114/46 L [#1] O2 Sat by Pulse 96 Oximetry (%) O2 Sat by Pulse 96 Oximetry (%) [ #1] 07/02/19 07/02/19 07/03/19 21:00 23:49 07:55 Temperature 98.2 F 98.0 F Pulse Rate 70 63 Pulse Rate [#1] Respiratory 20 20 Rate Respiratory Rate [#1] Blood Pressure 136/70 116/65 Blood Pressure [#1] O2 Sat by Pulse 97 Oximetry (%) O2 Sat by Pulse Oximetry (%) [ #1] 07/03/19 07/03/19 08:53 09:00 Temperature 98.3 F Pulse Rate 69 Pulse Rate [#1] Respiratory 20 20 Rate Respiratory Rate [#1] Blood Pressure 129/68 Blood Pressure [#1] O2 Sat by Pulse 97 Oximetry (%) O2 Sat by Pulse Oximetry (%) [ #1] Current Medications Generic Name Dose Route Start Last Admin Trade Name Freq PRN Reason Stop Dose Admin Enalapril Maleate 20 mg 07/03/19 10:00 07/03/19 09:09 Vasotec - PO 20 mg DAILY NIKKY Administration Lactated Ringer's 1,000 ml in 1,000 mls @ 75 mls/hr 07/02/19 14:41 07/02/19 15:50 Lactated Ringers Solution IV 75 mls/hr ASDIR NIKKY Administration Nadolol 20 mg 07/03/19 10:00 07/03/19 09:09 Corgard - PO 20 mg DAILY NIKKY Administration Laboratory Results - last 24 hr 07/02/19 07/02/19 07/02/19 13:27 13:27 13:27 WBC 6.2 RBC 5.21 H Hgb 14.1 Hct 42.8 MCV 82.2 MCH 27.0 MCHC 32.9 RDW 14.7 Plt Count 182 MPV 9.8 Absolute Neuts (auto) 4.3 Neutrophils % 69.7 Lymphocytes % 21.3 D Monocytes % 7.3 Eosinophils % 0.5 Basophils % 1.2 Nucleated RBC % 0 PT with INR 11.70 INR 0.99 Sodium 143 Potassium 3.9 Chloride 110 H Carbon Dioxide 25 Anion Gap 9 BUN 13.8 Creatinine 0.8 Est GFR (CKD-EPI)AfAm 93.53 Est GFR (CKD-EPI)NonAf 80.70 POC Glucometer Random Glucose 141 H Calcium 8.9 Total Bilirubin 0.6 AST 28 ALT 28 Alkaline Phosphatase 99 Total Protein 7.8 Albumin 3.8 Blood Type Antibody Screen 07/02/19 07/02/19 07/03/19 13:27 20:46 07:30 WBC 4.4 RBC 4.65 Hgb 12.4 Hct 38.4 MCV 82.7 MCH 26.8 MCHC 32.4 RDW 14.4 Plt Count 144 D MPV 9.6 Absolute Neuts (auto) 2.6 Neutrophils % 60.7 Lymphocytes % 27.3 D Monocytes % 10.5 H Eosinophils % 1.1 D Basophils % 0.4 Nucleated RBC % 0 PT with INR INR Sodium Potassium Chloride Carbon Dioxide Anion Gap BUN Creatinine Est GFR (CKD-EPI)AfAm Est GFR (CKD-EPI)NonAf POC Glucometer 182 Random Glucose Calcium Total Bilirubin AST ALT Alkaline Phosphatase Total Protein Albumin Blood Type O POSITIVE Antibody Screen Negative 07/03/19 07/03/19 07:30 11:18 WBC RBC Hgb Hct MCV MCH MCHC RDW Plt Count MPV Absolute Neuts (auto) Neutrophils % Lymphocytes % Monocytes % Eosinophils % Basophils % Nucleated RBC % PT with INR INR Sodium 142 Potassium 3.9 Chloride 109 H Carbon Dioxide 26 Anion Gap 7 L BUN 12.8 Creatinine 0.7 Est GFR (CKD-EPI)AfAm 109.91 Est GFR (CKD-EPI)NonAf 94.84 POC Glucometer 125 Random Glucose 151 H Calcium 8.4 L Total Bilirubin 0.9 AST 22 ALT 23 Alkaline Phosphatase 81 Total Protein 6.6 Albumin 3.1 L Blood Type Antibody Screen S1 S2 RRR Lungs clear Abd- soft, obese, umbilical hernia +, tender+ trace edema PLAN keep NPO IV fluids continue with BP meds pt will be going for surgery today Problem List - Problems (1) Neuropathy Code(s): G62.9 - POLYNEUROPATHY, UNSPECIFIED (2) HTN (hypertension) Code(s): I10 - ESSENTIAL (PRIMARY) HYPERTENSION (3) Abdominal pain Code(s): R10.9 - UNSPECIFIED ABDOMINAL PAIN Qualifiers: Abdominal location: periumbilical Qualified Code(s): R10.33 - Periumbilical pain (4) Incarcerated umbilical hernia Code(s): K42.0 - UMBILICAL HERNIA WITH OBSTRUCTION, WITHOUT GANGRENE
[2019-07-03] MEDS ORDERED: ceFAZolin SODIUM 1 GM VIAL IVPB ONE (15:00)
[2019-07-03] MEDS ORDERED: BUPIVACAINE HCL/PF 0.25% (2.5MG/ML) 10 ML VIAL IJ ONE (16:45)
[2019-07-03] MEDS ORDERED: BACITRACIN 15 GM TUBE TOPICAL OINTMENT ONE (16:49)
[2019-07-03] MEDS ORDERED: BACITRACIN/POLYMYXIN B SULFATE 15 GM TUBE TP ONE (16:50)
--- NOTE | 2019-07-03 16:58 | OP ---
Operative Note - Note: Operative Date: 07/03/19 Pre-Operative Diagnosis: incarcerated umbilical hernia Operation: repair incarcerated umbilical hernia with Ventralex ST 8.0 cm. hernia patch Findings: incarcerated omentum and preperitoneal fat Surgeon: Dileep Ballard Reed Fixer: Tatianna Vinson Anesthesiologist/RADIOLOGY RESIDENT: Fitz Coley Anesthesia: General Specimens Removed: sac/omentum/fat Estimated Blood Loss (mls): 25
[2019-07-03] MEDS ORDERED: oxyCODONE HCL 5 MG TABLET PO PRN (17:43)
[2019-07-03] MEDS ORDERED: ONDANSETRON 4 MG/2 ML VIAL IVPUSH PRN (17:43)
[2019-07-03] MEDS ORDERED: HYDROmorphone HCl 2 MG/ML VIAL ONE (17:57)
[2019-07-03] MEDS ORDERED: HYDROmorphone HCL CARPU-JECT 2 MG/1 ML DISP.SYRIN IVPUSH PRN (17:57)
[2019-07-03] MEDS ORDERED: HYDROmorphone HCl 2 MG/ML VIAL IVPUSH PRN (18:05)
[2019-07-03] MEDS: ONDANSETRON 4 MG/2 ML VIAL IVPUSH PRN (18:15)
[2019-07-03] MEDS ORDERED: ONDANSETRON 4 MG/2 ML VIAL ONE (18:15)
[2019-07-03] MEDS ORDERED: ACETAMINOPHEN INJECTION 100 ML IVPB ONE (18:24)
[2019-07-03] MEDS ORDERED: ACETAMINOPHEN 1000 MG/100 ML VIAL (NON FORMULARY) IVPB ONE (18:29)
[2019-07-03] MEDS ORDERED: PROMETHAZINE HCL 25 MG/1 ML VIAL ONE (19:28)
[2019-07-03] MEDS: LACTATED RINGERS SOLUTION 1,000 ML/1,000 ML INFUS.BAG IV SCH (19:30)
[2019-07-03] MEDS ORDERED: PROMETHAZINE HCL 25 MG/1 ML VIAL IVPB ONE (19:39)
[2019-07-03] MEDS: oxyCODONE HCL 5 MG TABLET PO PRN (22:03)
[2019-07-04] MEDS: oxyCODONE HCL 5 MG TABLET PO PRN ×2 (02:03→21:21)
[2019-07-04] MEDS: LACTATED RINGERS SOLUTION 1,000 ML/1,000 ML INFUS.BAG IV SCH ×3 (07:49→21:22)
[2019-07-04] MEDS: ONDANSETRON 4 MG/2 ML VIAL IVPUSH PRN (08:05)
--- NOTE | 2019-07-04 08:10 | PN ---
Progress Note (short form) - Note Progress Note: POD #1 s/p repair incarcerated umbilical hernia with Ventralex ST 8.0 cm. hernia patch Patient is alert. Supine in bed. C/o incisional tenderness. Adequate pain control with meds ordered. States she's been OOB and ambulating unassisted. Voiding spontaneoulsy. Tolerating clear diet. Denies n/v/f/c, CP, palpitations, SOB or DUMONT. AVSS. Afebrile. Gen: nad Abd: Obese habitus. Umbilical lenard intact. No evidence of infection/ drainage. No hematoma LE: soft. supple. nt Problem List - Problems (1) Incarcerated umbilical hernia Assessment/Plan: POD #1 s/p repair incarcerated umbilical hernia with Ventralex ST 8.0 cm. hernia patch Cont OOB and ambulate Diet advanced to Sodium Controlled PRN pain management Cleared for dc from surgery service. On behalf of Dr. Ballard, thank you for the opportunity to participate in your patient's care. Code(s): K42.0 - UMBILICAL HERNIA WITH OBSTRUCTION, WITHOUT GANGRENE (2) Morbid obesity with BMI of 40.0-44.9, adult Assessment/Plan: Should patient desire to begin talks reguarding bariatric surgery --> Dr. Fitz Mesa at [facility] / [phone] Code(s): E66.01 - MORBID (SEVERE) OBESITY DUE TO EXCESS CALORIES; Z68.41 - BODY MASS INDEX (BMI) 40.0-44.9, ADULT (3) HTN (hypertension) Assessment/Plan: BP controlled Code(s): I10 - ESSENTIAL (PRIMARY) HYPERTENSION
[2019-07-04] MEDS: ENOXAPARIN NA (PORCINE) 40 MG/0.4 ML DISP.SYRIN SQ SCH (09:15)
--- NOTE | 2019-07-04 09:36 | PN ---
Progress Note (short form) - Note Progress Note: pt seen/ examined today chart reviewed all f/u noted pod #1 feels little dizzy afebrile mild discomfort. not passing gas yet bp on low side Vital Signs Temp 98.3 F 07/04/19 07:59 Pulse 64 07/04/19 07:59 Resp 16 07/04/19 07:59 BP 117/63 07/04/19 07:59 Pulse Ox 95 07/03/19 21:00 Intake & Output 07/03/19 07/03/19 07/04/19 11:59 23:59 11:59 Intake Total 0 1625 750 Output Total 20 0 Balance -20 1625 750 Intake: IV 1625 750 LACTATED RINGERS SOLUTION 525 1,000 ml In 1,000 ml @ 75 mls/hr IV [facility] Rx #:[id number] LACTATED RINGERS SOLUTION 750 1,000 ml In 1,000 ml @ 75 mls/hr IV [facility] Rx #:[id number] Oral Supplement 0 Output: Urine 0 Estimated Blood Loss 20 Other: Voiding Method Toilet Toilet Bowel Movement No Active Medications Enalapril Maleate (Vasotec -) 20 mg PO DAILY [facility] Enoxaparin Sodium (Lovenox -) 40 mg SQ DAILY [facility] Last Admin: 07/04/19 09:15 Dose: 40 mg Hydromorphone HCl (Dilaudid Vial -) 0.5 mg IVPUSH Q30M PRN PRN Reason: PAIN LEVEL 6-10 Last Admin: 07/03/19 18:05 Dose: 0.5 mg Lactated Ringer's (Lactated Ringers Solution) 1,000 ml in 1,000 mls @ 75 mls/ hr IV [facility] Last Admin: 07/04/19 07:49 Dose: 75 mls/hr Nadolol (Corgard -) 20 mg PO DAILY [facility] Ondansetron HCl (Zofran Injection) 4 mg IVPUSH Q6H PRN PRN Reason: NAUSEA AND/OR VOMITING Oxycodone HCl (Roxicodone -) 5 mg PO Q4H PRN PRN Reason: PAIN LEVEL 1-5 Oxycodone HCl (Roxicodone -) 10 mg PO Q4H PRN PRN Reason: PAIN LEVEL 6-10 Last Admin: 07/04/19 02:03 Dose: 10 mg CBC, BMP 07/03/19 07:30 07/03/19 07:30 Physical Awake/ comfortable S1 S2 RRR Lungs clear Abd- soft, dressing + trace edema monitor today contunue mild hydration hold bp meds today f/u labs if stable- d/c in am d/w pt/ nursing staff also will follow Problem List - Problems (1) HTN (hypertension) Code(s): I10 - ESSENTIAL (PRIMARY) HYPERTENSION (2) Incarcerated umbilical hernia Code(s): K42.0 - UMBILICAL HERNIA WITH OBSTRUCTION, WITHOUT GANGRENE (3) Morbid obesity with BMI of 40.0-44.9, adult Code(s): E66.01 - MORBID (SEVERE) OBESITY DUE TO EXCESS CALORIES; Z68.41 - BODY MASS INDEX (BMI) 40.0-44.9, ADULT
[2019-07-04] MEDS ORDERED: ENOXAPARIN NA (PORCINE) 40 MG/0.4 ML DISP.SYRIN SQ SCH (10:00)
--- NOTE | 2019-07-04 10:16 | SURG ---
Surgery Proofing Machine Operator Note Proofing Machine Operator: Tatianna Vinson PA-C Date of Service: 07/04/19 Diagnosis: incarcerated umbilical hernia Procedure: repair incarcerated umbilical hernia with Ventralex ST 8.0 cm. hernia patch I was present for the entirety of the operative procedure. For further detail, please refer to operative report. Visit type - Case Type Case Type: ED Admission - Emergency Emergency Visit: Yes ED Registration Date: 07/02/19 Care time: The patient presented to the Emergency Department on the above date and was hospitalized for further evaluation of their emergent condition. - New patient This patient is new to me today: Yes Date on this admission: 07/04/19
--- NOTE | 2019-07-04 10:32 | PN ---
Progress Note (short form) - Note Progress Note: Anesthesia postop note 59 y/o F s/p GA for incarcerated hernia POD#1, vss, aaox3, no complaints. No anesthesia complications.
[2019-07-04] MEDS: ENALAPRIL MALEATE 10 MG TABLET (FP) PO SCH (12:20)
[2019-07-04] MEDS: NADOLOL 20 MG TABLET (FP) PO SCH (12:20)
[2019-07-05] MEDS: oxyCODONE HCL 5 MG TABLET PO PRN (01:29)
[2019-07-05] MEDS: ENOXAPARIN NA (PORCINE) 40 MG/0.4 ML DISP.SYRIN SQ SCH (09:20)
[2019-07-05] MEDS: ENALAPRIL MALEATE 10 MG TABLET (FP) PO SCH (09:20)
[2019-07-05] MEDS: NADOLOL 20 MG TABLET (FP) PO SCH (09:20)
[2019-07-05 09:22] LABS: BASO % 0.4 % (0-2.0); EOS % 0.6 % (0-4.5); HEMATOCRIT 37.8 % (32.4-45.2); HEMOGLOBIN 12.3 GM/dL (10.7-15.3); LYMPH % 14.1 % (8-40); MCH 26.8 pg (25.7-33.7); MCHC 32.6 g/dl (32.0-36.0); MEAN CELL VOLUME 82.3 fl (80-96); MEAN PLT VOLUME 9.9 fl (7.5-11.1); MONO % 8.6 % (3.8-10.2); NEUT % 76.3 % (42.8-82.8); PLATELET COUNT 144 K/MM3 (134-434); RDW 14.5 % (11.6-15.6); WHITE BLOOD COUNT 7.1 K/mm3 (4.0-10.0)
[2019-07-05 09:56] LABS: ALBUMIN 3.2 g/dl (3.4-5.0); BILIRUBIN,TOTAL 1.1 mg/dL (0.2-1); BLOOD UREA NITROGEN 12.2 mg/dL (7-18); CALCIUM 8.3 mg/dL (8.5-10.1); CREATININE 0.7 mg/dL (0.55-1.3); POTASSIUM 3.9 mmol/L (3.5-5.1); TOT PROT 7.1 g/dl (6.4-8.2)
--- NOTE | 2019-07-05 10:38 | DS ---
Physical Examination Vital Signs: Vital Signs Temperature 98.1 F 07/05/19 05:00 Pulse Rate 70 07/05/19 05:00 Respiratory Rate 20 07/04/19 23:40 Blood Pressure 115/64 07/05/19 05:00 O2 Sat by Pulse Oximetry (%) 95 07/04/19 22:00 Constitutional: Yes: No Distress, Calm Cardiovascular: Yes: Regular Rate and Rhythm Respiratory: Yes: CTA Bilaterally Gastrointestinal: Yes: Normal Bowel Sounds, Soft, Abdomen, Obese. No: Tenderness Edema: No Labs: CBC, BMP 07/05/19 07:40 07/05/19 07:40 Discharge Summary Problems reviewed: Yes Reason For Visit: IRREDUCIBLE UMBILICAL HERNIA Current Active Problems Abdominal pain (Acute) HTN (hypertension) (Acute) Incarcerated umbilical hernia (Acute) Morbid obesity with BMI of 40.0-44.9, adult (Acute) Neuropathy (Acute) Umbilical hernia without obstruction and without gangrene (Acute) Hospital Course: Admitted for incarcerated umbilical hernia She underwent surgical repair on 07/03/19 She is feeling better no abd pain tolerating diet passing flatus no nausea Pt does c/o foul smelling odor and slight burning to urine Will check UA and culture -- I will check on the results as outpt and call her if needed for antibiotics Oxycodone eprescribed to pharmacy-- take for mod- severe pain , otherwise Tylenol as needed stable for dc home please see surgeon discharge instructions Condition: Stable - Instructions Diet, Activity, Other Instructions: Dr. Ballard Discharge Instructions Dear GUILLAUME PUGA, Post Operative Instructions Physical activity Resume your normal everyday activity as tolerated no heavy lifting or exercise until seen by your surgeon. You may walk unlimited amounts of and climb stairs. You may resume driving the car when you feel safe and comfortable behind the wheel. Wound care If you have a bandage, leave it on, and keep dry for 48 - 72 hours. After that time discard the outer bandage. If there are tapes on the skin under the outer bandage, leave them in place. They will peel off in the next 7 to 10 days. Do Not peel them off. You may shower 2 days after surgery. If there are tapes present on the skin, they can get wet. Diet There are no dietary restrictions. Eat healthy, high-fiber foods. Drink 6 to 8 glasses of liquid each day. This will assist in keeping your bowels are regular. Pain management You may take Tylenol or acetaminophen or Ibuprofen (for example, Motrin, Advil etc.) Any pain prescription medication ordered should be taken as prescribed for moderate to severe pain. Do not drive, drink alcohol or operate heavy machinery while taking narcotic pain medications. Call Dr. Ballard for any of the following: Severe pain not relieved by medication Fever of 101 or higher Excessive bleeding or drainage on dressing Inability to urinate ISTOP: [phone] Call the office at [phone] for a post operative appointment in 7 - 10 days. Disposition: HOME - Home Medications Comprehensive Discharge Medication List: Ambulatory Orders Metformin HCl [Glucophage] 1 tab PO BID 07/28/14 Enalapril Maleate [Vasotec] 20 mg PO DAILY 05/03/15 Gabapentin [Neurontin] 800 mg PO TID 05/03/15 Hydroxychloroquine So4 [Plaquenil -] 200 mg PO BID 05/03/15 Nadolol 20 mg PO DAILY 05/03/15 Mag Carb/Aluminum Hydrox/Algin [Gaviscon Liquid] 30 ml PO ASDIR #0 oral.susp Sennosides [Senna] 8.6 mg PO HS #30 tablet 07/05/19 oxyCODONE HCL [Roxicodone -] 5 mg PO Q8H PRN #14 tablet MDD 3 07/05/19
[2019-07-05 12:02] VITALS: BP 120/69; PULSE 84; TEMP 99.9
[2019-07-05 13:34] LABS: EPI CELLS 0.8 /HPF (0-5/HPF); HYALINE CASTS 0 /lpf (0-8); URINE APPEARANCE CLEAR; URINE BACTERIA 1.5 /hpf (NEGATIVE); URINE BILIRUBIN NEGATIVE (NEGATIVE); URINE COLOR YELLOW; URINE GLUCOSE (UA) NEGATIVE (NEGATIVE); URINE KETONE NEGATIVE (NEGATIVE); URINE LEUK ESTERASE NEGATIVE (NEGATIVE); URINE NITRITE NEGATIVE (NEGATIVE); URINE PROTEIN NEGATIVE (NEGATIVE); URINE RBC 6 /hpf (0-4); URINE UROBILINOGEN 0.2 mg/dL (0.2-1.0); URINE WBC 1 /hpf (0-5)
--- NOTE | 2019-07-07 12:17 | OP ---
DATE OF OPERATION: 07/03/2019 PREOPERATIVE DIAGNOSIS: Incarcerated umbilical hernia. POSTOPERATIVE DIAGNOSIS: Incarcerated umbilical hernia. PROCEDURE: Repair incarcerated umbilical hernia with Ventralex ST 8-cm hernia patch. SURGEON: Dileep Ballard MD LEAD RECOVERER: ABRAHAM Heard ANESTHESIA: General. OPERATIVE FINDINGS: There was incarcerated omentum and pre peritoneal fat in an umbilical hernia. The defect in the abdominal wall was approximately 3 cm in greatest dimension. The rest of the findings were unremarkable. DESCRIPTION OF PROCEDURE: The patient was placed on the operating table in a supine position. After the induction of general anesthesia, patient's abdomen was prepped with ChloraPrep and draped in a sterile fashion. A time-out was taken, and then an infraumbilical skin crease incision was made from the 3 to 9 o'clock position using a scalpel. This was taken down through skin and subcutaneous tissue to the abdominal wall. The umbilical stalk was then bluntly encircled and the umbilicus dissected off the abdominal wall, and the sac was entered, and the previously noted findings were observed. Adherent omentum to the sac was excised using electrocautery and/or divided between clamps and ligated with 2-0 Vicryl suture. Once all omentum was removed from the subcutaneous tissue along with the hernia sac, hernia repair was carried out by placing a Ventralex ST hernia patch 8 cm in diameter in the defect and suturing it to the abdominal wall at 12, 3, 6, and 9 o'clock with 0 Prolene suture. Hemostasis was checked for and noted to be good and then the wound was copiously irrigated with sterile saline. Hemostasis was again verified, and some redundant sac and subcutaneous tissue was closed over the defect with interrupted 2-0 Vicryl. The rest of the deep subcutaneous fat was reapproximated with interrupted 2-0 Vicryl , the deep dermis with interrupted 3-0 Vicryl, and the skin edges with surgical lenard. Dry sterile dressings were placed and the procedure terminated at this point and the patient aroused from general anesthesia and transferred to the post anesthesia care unit in stable condition awake and alert. ESTIMATED BLOOD LOSS: 25 mL. REPLACEMENT: Crystalloid. DRAINS: None. SPECIMENS: Hernia sac, omentum, and fat to pathology. I, Dileep Ballard, was physically present in the operating room from the time the patient was placed on the operating room table until she was transferred to the post anesthesia care unit in [facility]. MD DANNI Larios/[id number] MTDD
--- NOTE | 2019-07-08 09:32 | PATH ---
Surgical Pathology Report Patient Name: GUILLAUME PUGA [facility]. Rec. #: [id number] /Age/Gender: 1960 (Age: 59) / F Account: [id number] Location: [address] [place] [address] Taken: 07/03/2019 Received: 07/04/2019 Reported: 07/08/2019 Physicians: Morenita Rios M.D. Specimen(s) Received UMBILICAL HERNIA SAC Clinical History Irreducible umbilical hernia Surgical procedure: Open incarcerated ventral hernia repairs with mesh Final Diagnosis UMBILICAL HERNIA SAC, EXCISION: HERNIA SAC AND PORTIONS OF ADIPOSE TISSUE WITH FOCAL FAT NECROSIS AND FIBROSIS. Electronically Signed Jarad Mehta M.D. Gross Description Received in formalin, labeled "umbilical hernia sac" are multiple rossi, irregular portions of membranous and adipose tissue measuring 6 x 6 x 4 cm in aggregate. The specimen is serially sectioned and reveals focal white, firm discoloration of the fatty tissue. Concrete Hopper Operator sections are submitted in two cassettes. SRAVAN/07/04/2019 joaquin/07/04/2019
== END 2019-07-05 12:39 | disposition home or self-care (01) | DRG 354 ==
LOC: JER 12:27 → JERBED 14:42 → J6S 16:49
PROVIDERS: ADMIT Internal Medicine; ATTEND Internal Medicine
PROC: 0WUF0JZ Supplement Abdominal Wall with Synthetic Substitute, Open Approach (ICD-10-PCS; principal; 2019-07-03 12:30)
DX: K42.0 Umbilical hernia with obstruction, without gangrene (principal); Z68.41 Body mass index [BMI] 40.0-44.9, adult; E66.01 Morbid (severe) obesity due to excess calories; R10.33 Periumbilical pain
CPT/HCPCS: 36415; 71046-TC-FY; 80053; 81003; 82962; 85025; 85610; 86850; 86900; 86901; 88302-TC; 94760; 99283-25; J0131

== ENCOUNTER 2019-10-22 19:09 | Inpatient (IN) | payer MEDICARE, OTHER ==
--- NOTE | 2019-10-22 19:38 | PDOC ---
Rapid Medical Evaluation Time Seen by Provider: 10/22/19 19:34 Medical Evaluation: Allergies Allergy/AdvReac Type Severity Reaction Status Date / Time No Known Allergies Allergy Verified 10/22/19 19:35 10/22/19 19:35 The patient presents for evaluation of palpitations, and weakness for 1 week. She states she got a flu shot. She also notes that she has increased thirst. Exam: pt appears pale. heart RRR Orders; labs, ekg Pt to proceed to the ER for further evaluation Discharge Disposition - Diagnosis Weakness - Referrals - Patient Instructions - Post Discharge Activity
--- NOTE | 2019-10-22 21:22 | PDOC ---
Attending Attestation - Resident Resident Name: CammyJenn - ED Attending Attestation I have performed the following: I have examined & evaluated the patient, The case was reviewed & discussed with the resident, I agree w/resident's findings & plan - HPI HPI: 10/22/19 22:39 see resident hpi - Physicial Exam PE: 10/22/19 22:39 agree with resident exam - Medical Decision Making 10/22/19 22:39 59-year-old female with history of type 2 diabetes now with increasing weakness and remote complaint of palpitations Labs reveal a markedly elevated blood glucose of greater than 700 Bicarb is within normal limits IV fluid normal saline 2 L bolus with planned fingerstick and as needed insulin Patient to be admitted to medical service for further evaluation
[2019-10-22 21:25] LABS: BASO % 0.6 % (0-2.0); EOS % 0.6 % (0-4.5); HEMATOCRIT 45.3 % (32.4-45.2); HEMOGLOBIN 14.5 GM/dL (10.7-15.3); LYMPH % 18.4 % (8-40); MCH 27.1 pg (25.7-33.7); MEAN CELL VOLUME 84.9 fl (80-96); MEAN PLT VOLUME 11.3 fl (7.5-11.1); MONO % 8.9 % (3.8-10.2); NEUT % 71.5 % (42.8-82.8); RBC 5.34 M/mm3 (3.60-5.2); RDW 14.8 % (11.6-15.6); WHITE BLOOD COUNT 7.5 K/mm3 (4.0-10.0)
[2019-10-22] MEDS ORDERED: SODIUM CHLORIDE 0.9% 500 ML INFUS.BAG IV ONE (21:40)
[2019-10-22 21:41] LABS: INR 0.92 (0.83-1.09); PROTHROMBIN TIME (PATIENT) 10.9 SEC (9.7-13.0)
--- NOTE | 2019-10-22 21:45 | PDOC ---
*Physical Exam - Vital Signs Last Vital Signs Temp Pulse Resp BP Pulse Ox 98.2 F 97 H 18 174/99 H 97 10/22/19 19:35 10/22/19 19:35 10/22/19 19:35 10/22/19 19:35 10/22/19 19:35 - Physical Exam 10/22/19 21:42 GENERAL: Awake, alert, and fully oriented, in no acute distress HEAD: No signs of trauma, normocephalic, atraumatic EYES: PERRLA, EOMI, sclera anicteric, conjunctiva clear ENT: Auricles normal inspection, hearing grossly normal, nares patent, oropharynx clear without exudates. Moist mucosa NECK: Normal ROM, supple, no lymphadenopathy, JVD, or masses LUNGS: No distress, speaks full sentences, clear to auscultation bilaterally HEART: Regular rate and rhythm, normal S1 and S2, no murmurs, rubs or gallops, peripheral pulses normal and equal bilaterally. ABDOMEN: Soft, nontender, normoactive bowel sounds. No guarding, no rebound. No masses EXTREMITIES : Normal inspection, Normal range of motion, no edema. No clubbing or cyanosis NEUROLOGICAL: Cranial nerves II through XII grossly intact. Normal speech, normal gait, no focal sensorimotor deficits SKIN: Warm, Dry, normal turgor, no rashes or lesions noted ED Treatment Course - LABORATORY CBC & Chemistry Diagram: 10/22/19 20:40 10/22/19 20:40 - ADDITIONAL ORDERS Additional order review: Laboratory Results 10/22/19 20:40 PT with INR 10.90 INR 0.92 10/22/19 20:40 RBC 5.34 H MCV 84.9 MCHC 32.0 RDW 14.8 MPV 11.3 H D Neutrophils % 71.5 Lymphocytes % 18.4 D Monocytes % 8.9 Eosinophils % 0.6 Basophils % 0.6 Medical Decision Making - Medical Decision Making 10/22/19 21:42 59 yo F with h/o lupus, morbid obesity, HTN, HLD, NIDDM, gastric ulcer, incacerated umbilical hernia, who p/w polydyspia, polyuria, dysuria, fatigue x 1 week. Reports palpitations x 3 days ago, now resolved. BP 174/99, vitals otherwise wnl, AF, A&Ox3. Physical exam unremarkable. on Metformin BID, no home insulin. Denies CP, F/C, N/V, MG, SOB, abdominal pain, diarrhea, sensory change. Patient endorsed by Dr. Chawla. Pending cardiac eval/workup in ED. Assess for electrolyte abnml, hyperglycemia/HHS, metabolic and toxic derangements. Ed Course: 10/22/19 22:27 Laboratory Tests 10/22/19 21:50 Urine Color Yellow Ur Specific [place] 1.037 H Urine Glucose (UA) 3+ H Urine Ketones Negative Urine Blood 1+ H Urine Nitrite Negative Ur Leukocyte Esterase Negative Urine WBC (Auto) 2 Urine RBC (Auto) 4 10/22/19 22:35 Laboratory Tests 10/22/19 10/22/19 10/22/19 20:40 20:40 22:12 WBC 7.5 Hgb 14.5 Hct 45.3 H D Plt Count Pending VBG pH 7.38 VBG HCO3 24.3 Sodium 132 L Potassium 4.8 BUN 15.0 Creatinine 1.3 Random Glucose 757 H* Total Protein 7.6 TSH 1.16 Patient corrected Na 145-148 1/2 NS Q2 BS checks 10/23/19 01:40 BS 475 NS 1 L Insulin 10 SubQ 10/23/19 04:17 Repeat BS 344 Patient endorsed to Irma Phipps. Admit to medicine. PMD Dr. Morenita Rios Discharge - Discharge Information Problems reviewed: Yes Clinical Impression/Diagnosis: Hyperosmolar syndrome, Hyperglycemia Condition: Stable - Admission Yes - Follow up/Referral Referrals: Morenita Rios MD [Primary Care Provider] - - Patient Discharge Instructions Additional Instructions: Please return to the emergency department with any new or worsening symptoms or concerns. Please follow up with your primary care physician within 72 hours. - Post Discharge Activity
--- NOTE | 2019-10-22 22:02 | PDOC ---
History of Present Illness - General Chief Complaint: Palpitations Stated Complaint: PALPITATIONS/WEAKNESS Time Seen by Provider: 10/22/19 19:34 - History of Present Illness Initial Comments: Leonora Villarreal is a 59yo woman with a PMH of HTN, HLD, NIDDM, h pylori, PUD, IBS, Lupus (per pt, not noted in chart) who presents with multiple complaints. She states that she has had a dry cough for the past 2-3 weeks; she denies associated fevers, congestion, rhinorrhea, SOB, recent travel, sick contacts. She additionally reports that her skin, especially on her arms, has been dry and itchy despite applying lotion. Finally, she says that she has been extremely thirsty despite trying to drink extra fluids throughout the day. She says that she has been unable to eat but is unclear what is preventing her from eating; she denies any nausea, abdominal pain, or diarrhea. Ms Villarreal reports that she has been drinking water and apple juice rather than eating. She does endorse frequent urination but denies any dysuria, hematuria, or urgency. Ms Villarreal endorses palpitations several days ago (when asked) but states that they resolved spontaneously and have not returned. Past History - Past Medical History Allergies/Adverse Reactions: Allergies Allergy/AdvReac Type Severity Reaction Status Date / Time No Known Allergies Allergy Verified 10/22/19 19:35 Anemia: No Asthma: No Cancer: No Cardiac Disorders: No CVA: No COPD: No CHF: No Dementia: No Diabetes: Yes (NIDDM) GI Disorders: Yes (GASTRIC ULCER, IBS, H.PYLORI) Disorders: No HTN: Yes Hypercholesterolemia: No Liver Disease: No Seizures: No Thyroid Disease: No - Surgical History Abdominal Surgery: No Appendectomy: No Cardiac Surgery: No Cholecystectomy: No Lung Surgery: No Neurologic Surgery: No Orthopedic Surgery: No - Psycho Social/Smoking Cessation Hx Smoking Status: No Smoking History: Never smoked Have you smoked in the past 12 months: No Number of Cigarettes Smoked Daily: 0 If you are a former smoker, when did you quit?: 1993 Hx Alcohol Use: No Drug/Substance Use Hx: No Substance Use Type: None Hx Substance Use Treatment: No Review of Systems - Review of Systems Comments:: General: No fevers, no chills, no weight or appetite change, no malaise HEENT: No changes in vision, no changes in hearing, no congestion, no sore throat CV: No chest pain, no palpitations, no LE edema Pulm: No SOB, no cough, no wheezing GI: +occasional nausea, no change in bowel habits, no melena : + frequency, no urgency, no dysuria Musc: No back pain, no joint swelling, no recent injury Skin: No rash, no lesions, no erythema Endo: No excessive thirst, no heat/cold intolerance Heme: No unusual bruising or bleeding, no swollen glands Neuro: No syncope, no numbness/tingling, no focal weakness Vasc: No claudication Psych: No recent change in mood, no SI or HI *Physical Exam - Vital Signs Last Vital Signs Temp Pulse Resp BP Pulse Ox 98.2 F 97 H 18 174/99 H 97 10/22/19 19:35 10/22/19 19:35 10/22/19 19:35 10/22/19 19:35 10/22/19 19:35 ED Treatment Course - LABORATORY CBC & Chemistry Diagram: 10/22/19 20:40 10/22/19 20:40 - ADDITIONAL ORDERS Additional order review: Laboratory Results 10/22/19 10/22/19 20:40 20:40 WBC 7.5 RBC 5.34 H Hgb 14.5 Hct 45.3 H D MCV 84.9 MCH 27.1 MCHC 32.0 RDW 14.8 MPV 11.3 H D Absolute Neuts (auto) 5.4 Neutrophils % 71.5 Lymphocytes % 18.4 D Monocytes % 8.9 Eosinophils % 0.6 Basophils % 0.6 Nucleated RBC % 0 PT with INR 10.90 INR 0.92 10/22/19 20:40 RBC 5.34 H MCV 84.9 MCHC 32.0 RDW 14.8 MPV 11.3 H D Neutrophils % 71.5 Lymphocytes % 18.4 D Monocytes % 8.9 Eosinophils % 0.6 Basophils % 0.6 - Medications Given in the ED: ED Medications Discontinued Medications Generic Name Dose Route Start Last Admin Trade Name Freq PRN Reason Stop Dose Admin Sodium Chloride 1,000 ml 10/22/19 21:40 10/22/19 21:55 Normal Saline - IV 10/22/19 21:41 1,000 ml ONCE ONE Administration Medical Decision Making - Medical Decision Making 10/22/19 21:57 Leonora Villarreal is a 59yo woman with a PMH of HTN, HLD, NIDDM, h pylori, PUD, IBS, ? lupus who presents with multiple complaints including thirst, dry skin, and frequent urination. She has been drinking apple juice without improvement in her thirst. - Dry skin, dry mouth/lips suggesting dehydration. Possibly secondary to hyperglycemia, HHS, UTI, poor fluid intake. Less likely DKA as pt is not on insulin. - CBC, CMP, coags, TSH, UA, UCx sent from [facility]. Will check chemistry to evaluate gap, may need additional labs sent if concerns for DkA - IVF - EKG compelted. NSR, HR 95, left axis, normal intervals. Unchanged from previous 10/22/19 22:27 - Labs reviewed. Glucose almost 700 - Ketones, VBG added per Dr Schrader - Additional IVF ordered - Signed out to Dr Schrader for the remainder of her ED care. Discussed with Dr Mauricio Chawla PGY2 Discharge - Discharge Information Problems reviewed: Yes Clinical Impression/Diagnosis: Hyperglycemia - Follow up/Referral Referrals: Morenita Rios MD [Primary Care Provider] - - Patient Discharge Instructions Additional Instructions: Please return to the emergency department with any new or worsening symptoms or concerns. Please follow up with your primary care physician within 72 hours. - Post Discharge Activity
[2019-10-22 22:14] LABS: EPI CELLS 0.8 /HPF (0-5/HPF); HYALINE CASTS 0 /lpf (0-8); PH,URINE 5.5 (5.0-8.0); URINE APPEARANCE CLEAR; URINE BACTERIA 4.6 /hpf (NEGATIVE); URINE BILIRUBIN NEGATIVE (NEGATIVE); URINE COLOR YELLOW; URINE GLUCOSE (UA) 3+ (NEGATIVE); URINE KETONE NEGATIVE (NEGATIVE); URINE LEUK ESTERASE NEGATIVE (NEGATIVE); URINE NITRITE NEGATIVE (NEGATIVE); URINE PROTEIN NEGATIVE (NEGATIVE); URINE RBC 4 /hpf (0-4); URINE UROBILINOGEN 0.2 mg/dL (0.2-1.0); URINE WBC 2 /hpf (0-5)
[2019-10-22 22:19] LABS: ALBUMIN 3.8 g/dl (3.4-5.0); BILIRUBIN,TOTAL 0.5 mg/dL (0.2-1); CALCIUM 9.1 mg/dL (8.5-10.1); CREATININE 1.3 mg/dL (0.55-1.3); POTASSIUM 4.8 mmol/L (3.5-5.1); TOT PROT 7.6 g/dl (6.4-8.2)
[2019-10-22 22:29] LABS: VENOUS PC02 41.9 mmHg (38-52); VENOUS PH 7.38 (7.31-7.41)
[2019-10-22] MEDS: SODIUM CHLORIDE 0.45% 1,000 ML IV SCH (22:30)
[2019-10-22 22:49] LABS: PLATELET COUNT 133 K/MM3 (134-434); PLATELET ESTIMATE DECREASED
[2019-10-23] MEDS ORDERED: INSULIN REGULAR HUMAN 100 UNITS/ML *VIAL SQ ONE ×3 (01:40→03:39)
[2019-10-23] MEDS: SODIUM CHLORIDE 0.45% 1,000 ML IV SCH (01:53)
[2019-10-23] MEDS ORDERED: INSULIN REGULAR HUMAN 100 UNITS/ML *VIAL ONE ×2 (01:54→03:26)
--- NOTE | 2019-10-23 04:19 | HP ---
Admitting History and Physical - Primary Care Physician PCP: Morenita Rios - Admission Chief Complaint: Polydipsia, Polyuria, Cough, Dry Skin History of Present Illness: This is a 59 y/o woman with a PMHx of HTN, HLD, NIDDM, H Pylori, PUD, IBS, Lupus. Who presents to the ED with cough, dry skin, polydipsia, polyuria, nausea. Patient reports drinking large amounts of water and apple juice. She reports having palpitations several days ago- resolved. Patient denies fever, chills, SOB, dizziness, MG, CP, AP, V/D, constipation. History Source: Patient Limitations to Obtaining History: No Limitations - Past Medical History Cardiovascular: Yes: HTN, Hyperlipdemia Gastrointestinal: Yes: Irritable Bowel Disease, Peptic Ulcer Disease, Other (H Pylori) ...LMP: 07/01/08 Rheumatology: Yes: Lupus - Past Surgical History Past Surgical History: Yes: Hernia Repair - Smoking History Smoking history: Former smoker Have you smoked in the past 12 months: No Aproximately how many cigarettes per day: 0 If you are a former smoker, when did you quit?: 1993 - Alcohol/Substance Use Hx Alcohol Use: No History of Substance Use: reports: None - Social History Usual Living Arrangement: Yes: With Significant Other ADL: Independent Occupation: Disabled History of Recent Travel: No Home Medications - Allergies Allergies/Adverse Reactions: Allergies Allergy/AdvReac Type Severity Reaction Status Date / Time No Known Allergies Allergy Verified 10/22/19 19:35 - Home Medications Home Medications: Ambulatory Orders Aspirin 81 mg PO DAILY 10/23/19 Enalapril Maleate [Vasotec] 20 mg PO DAILY 10/23/19 Gabapentin 800 mg PO TID 10/23/19 Metformin HCl [Glucophage] 500 mg PO BID 10/23/19 Nadolol [Corgard] 20 mg PO DAILY 10/23/19 Home Medications (free text): Plaquenil 200mg po QD Family Medical History Family Hx Cardiac Disorders: Mother ([place]- ), Father (HTN), Sister (CHF) Review of Systems - Review of Systems Constitutional: reports: Loss of Appetite Eyes: reports: No Symptoms HENT: reports: No Symptoms Neck: reports: No Symptoms Cardiovascular: reports: Palpitations Respiratory: reports: Cough Gastrointestinal: reports: Nausea Genitourinary: reports: Burning, Frequency Breasts: reports: No Symptoms Reported Musculoskeletal: reports: No Symptoms Integumentary: reports: Pruritis, Other (Dry) Neurological: reports: No Symptoms Endocrine: reports: Increased Thirst Hematology/Lymphatic: reports: No Symptoms Psychiatric: reports: No Symptoms Pain Intensity: 0 Physical Examination Vital Signs: Vital Signs Temperature 98.2 F 10/22/19 19:35 Pulse Rate 86 10/22/19 22:16 Respiratory Rate 18 10/22/19 22:16 Blood Pressure 146/61 10/22/19 22:16 O2 Sat by Pulse Oximetry (%) 97 10/22/19 22:16 Constitutional: Yes: Well Nourished, No Distress, Calm, Obese Eyes: Yes: WNL, Conjunctiva Clear, EOM Intact, PERRL HENT: Yes: Other (dry mucous membranes) Neck: Yes: WNL, Supple, Trachea Midline Cardiovascular: Yes: WNL, Regular Rate and Rhythm, S1, S2 Respiratory: Yes: WNL, Regular, CTA Bilaterally Gastrointestinal: Yes: WNL, Normal Bowel Sounds, Soft, Abdomen, Obese ...Rectal Exam: Yes: WNL Renal/: Yes: WNL Breast(s): Yes: WNL Musculoskeletal: Yes: WNL Extremities: Yes: WNL Edema: Yes Edema: LLE: Trace, RLE: Trace Peripheral Pulses WNL: Yes Integumentary: Yes: WNL Neurological: Yes: WNL, Alert, Oriented, Cran Nerves II-XII Intact ...Motor Strength: WNL Psychiatric: Yes: WNL, Alert, Oriented Labs: CBC, BMP 10/22/19 20:40 Laboratory Results - last 24 hr 10/22/19 10/22/19 10/22/19 20:40 20:40 20:40 WBC 7.5 RBC 5.34 H Hgb 14.5 Hct 45.3 H D MCV 84.9 MCH 27.1 MCHC 32.0 RDW 14.8 Plt Count 133 L MPV 11.3 H D Absolute Neuts (auto) 5.4 Neutrophils % 71.5 Lymphocytes % 18.4 D Monocytes % 8.9 Eosinophils % 0.6 Basophils % 0.6 Nucleated RBC % 0 Platelet Estimate Decreased Platelet Comment Rare giant plts PT with INR 10.90 INR 0.92 PTT (Actin FS) VBG pH POC VBG pCO2 POC VBG pO2 VBG HCO3 VBG O2 Sat (Chely) VBG Base Excess Sodium 132 L Potassium 4.8 Chloride 94 L Carbon Dioxide 26 Anion Gap 12 BUN 15.0 Creatinine 1.3 Est GFR (CKD-EPI)AfAm 52.00 Est GFR (CKD-EPI)NonAf 44.87 POC Glucometer Random Glucose 757 H* Calcium 9.1 Total Bilirubin 0.5 AST 28 ALT 46 Alkaline Phosphatase 196 H Creatine Kinase Troponin I Total Protein 7.6 Albumin 3.8 Beta-Hydroxybutyrate TSH 1.16 Urine Color Urine Appearance Urine pH Ur Specific [place] Urine Protein Urine Glucose (UA) Urine Ketones Urine Blood Urine Nitrite Urine Bilirubin Urine Urobilinogen Ur Leukocyte Esterase Urine WBC (Auto) Urine RBC (Auto) Urine Casts (Auto) U Epithel Cells (Auto) Urine Bacteria (Auto) 10/22/19 10/22/19 10/22/19 21:50 22:12 22:12 WBC RBC Hgb Hct MCV MCH MCHC RDW Plt Count MPV Absolute Neuts (auto) Neutrophils % Lymphocytes % Monocytes % Eosinophils % Basophils % Nucleated RBC % Platelet Estimate Platelet Comment PT with INR INR PTT (Actin FS) VBG pH 7.38 POC VBG pCO2 41.9 POC VBG pO2 103 H VBG HCO3 24.3 VBG O2 Sat (Chely) 97.6 H VBG Base Excess -0.3 Sodium Potassium Chloride Carbon Dioxide Anion Gap BUN Creatinine Est GFR (CKD-EPI)AfAm Est GFR (CKD-EPI)NonAf POC Glucometer Random Glucose Calcium Total Bilirubin AST ALT Alkaline Phosphatase Creatine Kinase 75 Troponin I < 0.02 Total Protein Albumin Beta-Hydroxybutyrate 5.0 H TSH Urine Color Yellow Urine Appearance Clear Urine pH 5.5 Ur Specific [place] 1.037 H Urine Protein Negative Urine Glucose (UA) 3+ H Urine Ketones Negative Urine Blood 1+ H Urine Nitrite Negative Urine Bilirubin Negative Urine Urobilinogen 0.2 Ur Leukocyte Esterase Negative Urine WBC (Auto) 2 Urine RBC (Auto) 4 Urine Casts (Auto) 0 U Epithel Cells (Auto) 0.8 Urine Bacteria (Auto) 4.6 10/22/19 10/22/19 10/23/19 22:12 23:53 01:11 WBC RBC Hgb Hct MCV MCH MCHC RDW Plt Count MPV Absolute Neuts (auto) Neutrophils % Lymphocytes % Monocytes % Eosinophils % Basophils % Nucleated RBC % Platelet Estimate Platelet Comment PT with INR INR PTT (Actin FS) 31.8 VBG pH POC VBG pCO2 POC VBG pO2 VBG HCO3 VBG O2 Sat (Chely) VBG Base Excess Sodium Potassium Chloride Carbon Dioxide Anion Gap BUN Creatinine Est GFR (CKD-EPI)AfAm Est GFR (CKD-EPI)NonAf POC Glucometer 509 475 Random Glucose Calcium Total Bilirubin AST ALT Alkaline Phosphatase Creatine Kinase Troponin I Total Protein Albumin Beta-Hydroxybutyrate TSH Urine Color Urine Appearance Urine pH Ur Specific [place] Urine Protein Urine Glucose (UA) Urine Ketones Urine Blood Urine Nitrite Urine Bilirubin Urine Urobilinogen Ur Leukocyte Esterase Urine WBC (Auto) Urine RBC (Auto) Urine Casts (Auto) U Epithel Cells (Auto) Urine Bacteria (Auto) 10/23/19 10/23/19 10/23/19 03:18 03:20 04:12 WBC RBC Hgb Hct MCV MCH MCHC RDW Plt Count MPV Absolute Neuts (auto) Neutrophils % Lymphocytes % Monocytes % Eosinophils % Basophils % Nucleated RBC % Platelet Estimate Platelet Comment PT with INR INR PTT (Actin FS) VBG pH POC VBG pCO2 POC VBG pO2 VBG HCO3 VBG O2 Sat (Chely) VBG Base Excess Sodium 137 Potassium 3.8 Chloride 103 Carbon Dioxide 27 Anion Gap 7 L BUN 11.6 Creatinine 0.8 Est GFR (CKD-EPI)AfAm 93.53 Est GFR (CKD-EPI)NonAf 80.70 POC Glucometer 403 344 Random Glucose 403 H* Calcium 7.9 L Total Bilirubin 0.6 AST 21 ALT 36 Alkaline Phosphatase 128 H Creatine Kinase Troponin I Total Protein 6.2 L Albumin 3.1 L Beta-Hydroxybutyrate TSH Urine Color Urine Appearance Urine pH Ur Specific [place] Urine Protein Urine Glucose (UA) Urine Ketones Urine Blood Urine Nitrite Urine Bilirubin Urine Urobilinogen Ur Leukocyte Esterase Urine WBC (Auto) Urine RBC (Auto) Urine Casts (Auto) U Epithel Cells (Auto) Urine Bacteria (Auto) Intake & Output 10/20/19 10/21/19 10/22/19 10/23/19 23:59 23:59 23:59 23:59 Intake Total 1999 Balance 1999 Weight 137.438 kg Current Medications Generic Name Dose Route Start Last Admin Trade Name Freq PRN Reason Stop Dose Admin Aspirin 81 mg 10/23/19 10:00 Asa - PO DAILY NIKKY Heparin Sodium (Porcine) 5,000 unit 10/23/19 10:00 Heparin - SQ BID NIKKY Hydroxychloroquine Sulfate 200 mg 10/23/19 10:00 Plaquenil - PO DAILY NIKKY Sodium Chloride 1,000 mls @ 100 mls/hr 10/22/19 22:30 10/22/19 22:30 1/2 Normal Saline IV 100 mls/hr ASDIR NIKKY Administration Sodium Chloride 1,000 mls @ 1,000 mls/hr 10/23/19 01:00 10/23/19 01:53 1/2 Normal Saline IV 1,000 mls/hr ASDIR NIKKY Administration Insulin Aspart 1 vial 10/23/19 07:00 Novolog Vial Sliding Scale - SQ ACHS [facility] Protocol Nadolol 20 mg 10/23/19 10:00 Corgard - PO DAILY NIKKY Non-Formulary Medication 20 mg 10/23/19 10:00 Enalapril Maleate [Vasotec] PO DAILY NIKKY Non-Formulary Medication 800 mg 10/23/19 06:00 Gabapentin [Gabapentin] PO TID [facility] Imaging - Results Chest X-ray: Pending EKG: Image Reviewed Problem List - Problems (1) Hyperosmolar non-ketotic state in patient with type 2 diabetes mellitus Assessment/Plan: Likely secondary to dehydration vs non-compliance Glucose 757 Beta-Hydroxybutyrate 5 NS boluses, Insulin IV given in ED Continue 0.45%NS until BGMs 250, then change to D5.45%NS ISS Appreciate Endocrinology consult HgbA1c add on to am labs RD consult Monitor BMP Monitor vitals Code(s): E11.00 - TYPE 2 DIAB W HYPROSM W/O NONKET HYPRGLY-HYPROS COMA ([facility]) (2) HTN (hypertension) Assessment/Plan: stable Monitor BP Continue home meds Monitor renal function Code(s): I10 - ESSENTIAL (PRIMARY) HYPERTENSION (3) HLD (hyperlipidemia) Assessment/Plan: no current med Code(s): E78.5 - HYPERLIPIDEMIA, UNSPECIFIED (4) Lupus (systemic lupus erythematosus) Assessment/Plan: stable No acute flare Continue Plaquenil Code(s): M32.9 - SYSTEMIC LUPUS ERYTHEMATOSUS, UNSPECIFIED (5) Hypocalcemia Assessment/Plan: Secondary to hypoalbuminemia Calcium Correction 8.6 Code(s): E83.51 - HYPOCALCEMIA Assessment/Plan This is a 59 y/o woman with a PMHx of HTN, HLD, NIDDM, H Pylori, PUD, IBS. Admitted for Hyperosmolar, Hyperglycemic Syndrome, ADARSH for further evaluation of their emergent condition. Plan: See Problem List FEN PO fluids Replete lytes prn Low Na, Diabetic Diet DVT ppx OOB SCDs Heparin SQ Dispo: Requires Inpatient Care Visit type - Emergency Visit Emergency Visit: Yes ED Registration Date: 10/22/19 Care time: The patient presented to the Emergency Department on the above date and was hospitalized for further evaluation of their emergent condition. - New Patient This patient is new to me today: Yes Date on this admission: 10/23/19 - Critical Care Critical Care patient: No
[2019-10-23 05:14] LABS: ALBUMIN 3.1 g/dl (3.4-5.0); BILIRUBIN,TOTAL 0.6 mg/dL (0.2-1); BLOOD UREA NITROGEN 11.6 mg/dL (7-18); CALCIUM 7.9 mg/dL (8.5-10.1); CREATININE 0.8 mg/dL (0.55-1.3); POTASSIUM 3.8 mmol/L (3.5-5.1); TOT PROT 6.2 g/dl (6.4-8.2)
[2019-10-23] MEDS: HYDROXYCHLOROQUINE SO4 200 MG TABLET (FP) PO SCH (11:32)
[2019-10-23] MEDS: NADOLOL 20 MG TABLET (FP) PO SCH (11:32)
[2019-10-23] MEDS: HEPARIN NA (PORCINE) 5,000 UNITS/ML 1ML VIAL SQ SCH ×2 (11:32→21:59)
[2019-10-23] MEDS: ASPIRIN 81 MG CHEWABLE TABLETS PO SCH (11:32)
[2019-10-23] MEDS: GABAPENTIN 400 MG CAPSULE PO SCH ×3 (11:33→21:59)
[2019-10-23] MEDS ORDERED: PT OWN MED DRAWER 7, Y5N ONE ×3 (11:34→21:40)
--- NOTE | 2019-10-23 11:36 | PN ---
Progress Note (short form) - Note Progress Note: pt examined events noted has an annoying fruity smell in urine per pt She was on Januvia 50mg daily and Metformin 1000mg BID -- but was only taking the januvia and Metformin 500mg bid Admits to checking her BGM qweekly Thirsty++ No appetite Vital Signs - 24 hr 10/22/19 10/22/19 10/23/19 19:35 22:16 06:05 Temperature 98.2 F Pulse Rate 97 H Pulse Rate [ 86 74 Right Radial] Respiratory 18 18 18 Rate Blood Pressure 174/99 H Blood Pressure 146/61 117/60 [Right Arm] O2 Sat by Pulse 97 97 98 Oximetry (%) Current Medications Generic Name Dose Route Start Last Admin Trade Name Freq PRN Reason Stop Dose Admin Aspirin 81 mg 10/23/19 10:00 Asa - PO DAILY [facility] Enalapril Maleate 20 mg 10/23/19 10:00 Vasotec - PO DAILY [facility] Gabapentin 800 mg 10/23/19 06:00 Neurontin - PO TID [facility] Heparin Sodium (Porcine) 5,000 unit 10/23/19 10:00 Heparin - SQ BID [facility] Hydroxychloroquine Sulfate 200 mg 10/23/19 10:00 Plaquenil - PO DAILY [facility] Sodium Chloride 1,000 mls @ 100 mls/hr 10/22/19 22:30 10/22/19 22:30 1/2 Normal Saline IV 100 mls/hr ASDIR NIKKY Administration Sodium Chloride 1,000 mls @ 1,000 mls/hr 10/23/19 01:00 10/23/19 01:53 1/2 Normal Saline IV 1,000 mls/hr ASDIR NIKKY Administration Insulin Aspart 1 vial 10/23/19 07:00 Novolog Vial Sliding Scale - SQ ACHS [facility] Protocol Nadolol 20 mg 10/23/19 10:00 Corgard - PO DAILY [facility] Laboratory Results - last 24 hr 10/22/19 10/22/19 10/22/19 20:40 20:40 20:40 WBC 7.5 RBC 5.34 H Hgb 14.5 Hct 45.3 H D MCV 84.9 MCH 27.1 MCHC 32.0 RDW 14.8 Plt Count 133 L MPV 11.3 H D Absolute Neuts (auto) 5.4 Neutrophils % 71.5 Lymphocytes % 18.4 D Monocytes % 8.9 Eosinophils % 0.6 Basophils % 0.6 Nucleated RBC % 0 Platelet Estimate Decreased Platelet Comment Rare giant plts PT with INR 10.90 INR 0.92 PTT (Actin FS) VBG pH POC VBG pCO2 POC VBG pO2 VBG HCO3 VBG O2 Sat (Chely) VBG Base Excess Sodium 132 L Potassium 4.8 Chloride 94 L Carbon Dioxide 26 Anion Gap 12 BUN 15.0 Creatinine 1.3 Est GFR (CKD-EPI)AfAm 52.00 Est GFR (CKD-EPI)NonAf 44.87 POC Glucometer Random Glucose 757 H* Hemoglobin A1c % Calcium 9.1 Total Bilirubin 0.5 AST 28 ALT 46 Alkaline Phosphatase 196 H Creatine Kinase Troponin I Total Protein 7.6 Albumin 3.8 Beta-Hydroxybutyrate TSH 1.16 Urine Color Urine Appearance Urine pH Ur Specific [place] Urine Protein Urine Glucose (UA) Urine Ketones Urine Blood Urine Nitrite Urine Bilirubin Urine Urobilinogen Ur Leukocyte Esterase Urine WBC (Auto) Urine RBC (Auto) Urine Casts (Auto) U Epithel Cells (Auto) Urine Bacteria (Auto) 10/22/19 10/22/19 10/22/19 21:50 22:12 22:12 WBC RBC Hgb Hct MCV MCH MCHC RDW Plt Count MPV Absolute Neuts (auto) Neutrophils % Lymphocytes % Monocytes % Eosinophils % Basophils % Nucleated RBC % Platelet Estimate Platelet Comment PT with INR INR PTT (Actin FS) VBG pH 7.38 POC VBG pCO2 41.9 POC VBG pO2 103 H VBG HCO3 24.3 VBG O2 Sat (Chely) 97.6 H VBG Base Excess -0.3 Sodium Potassium Chloride Carbon Dioxide Anion Gap BUN Creatinine Est GFR (CKD-EPI)AfAm Est GFR (CKD-EPI)NonAf POC Glucometer Random Glucose Hemoglobin A1c % Calcium Total Bilirubin AST ALT Alkaline Phosphatase Creatine Kinase 75 Troponin I < 0.02 Total Protein Albumin Beta-Hydroxybutyrate 5.0 H TSH Urine Color Yellow Urine Appearance Clear Urine pH 5.5 Ur Specific [place] 1.037 H Urine Protein Negative Urine Glucose (UA) 3+ H Urine Ketones Negative Urine Blood 1+ H Urine Nitrite Negative Urine Bilirubin Negative Urine Urobilinogen 0.2 Ur Leukocyte Esterase Negative Urine WBC (Auto) 2 Urine RBC (Auto) 4 Urine Casts (Auto) 0 U Epithel Cells (Auto) 0.8 Urine Bacteria (Auto) 4.6 01/22/20 01/22/20 01/23/20 22:12 23:53 01:11 WBC RBC Hgb Hct MCV MCH MCHC RDW Plt Count MPV Absolute Neuts (auto) Neutrophils % Lymphocytes % Monocytes % Eosinophils % Basophils % Nucleated RBC % Platelet Estimate Platelet Comment PT with INR INR PTT (Actin FS) 31.8 VBG pH POC VBG pCO2 POC VBG pO2 VBG HCO3 VBG O2 Sat (Chely) VBG Base Excess Sodium Potassium Chloride Carbon Dioxide Anion Gap BUN Creatinine Est GFR (CKD-EPI)AfAm Est GFR (CKD-EPI)NonAf POC Glucometer 509 475 Random Glucose Hemoglobin A1c % Calcium Total Bilirubin AST ALT Alkaline Phosphatase Creatine Kinase Troponin I Total Protein Albumin Beta-Hydroxybutyrate TSH Urine Color Urine Appearance Urine pH Ur Specific [place] Urine Protein Urine Glucose (UA) Urine Ketones Urine Blood Urine Nitrite Urine Bilirubin Urine Urobilinogen Ur Leukocyte Esterase Urine WBC (Auto) Urine RBC (Auto) Urine Casts (Auto) U Epithel Cells (Auto) Urine Bacteria (Auto) 10/23/19 10/23/19 10/23/19 03:18 03:20 04:12 WBC RBC Hgb Hct MCV MCH MCHC RDW Plt Count MPV Absolute Neuts (auto) Neutrophils % Lymphocytes % Monocytes % Eosinophils % Basophils % Nucleated RBC % Platelet Estimate Platelet Comment PT with INR INR PTT (Actin FS) VBG pH POC VBG pCO2 POC VBG pO2 VBG HCO3 VBG O2 Sat (Chely) VBG Base Excess Sodium 137 Potassium 3.8 Chloride 103 Carbon Dioxide 27 Anion Gap 7 L BUN 11.6 Creatinine 0.8 Est GFR (CKD-EPI)AfAm 93.53 Est GFR (CKD-EPI)NonAf 80.70 POC Glucometer 403 344 Random Glucose 403 H* Hemoglobin A1c % Calcium 7.9 L Total Bilirubin 0.6 AST 21 ALT 36 Alkaline Phosphatase 128 H Creatine Kinase Troponin I Total Protein 6.2 L Albumin 3.1 L Beta-Hydroxybutyrate TSH Urine Color Urine Appearance Urine pH Ur Specific [place] Urine Protein Urine Glucose (UA) Urine Ketones Urine Blood Urine Nitrite Urine Bilirubin Urine Urobilinogen Ur Leukocyte Esterase Urine WBC (Auto) Urine RBC (Auto) Urine Casts (Auto) U Epithel Cells (Auto) Urine Bacteria (Auto) 10/23/19 10/23/19 04:22 07:33 WBC RBC Hgb Hct MCV MCH MCHC RDW Plt Count MPV Absolute Neuts (auto) Neutrophils % Lymphocytes % Monocytes % Eosinophils % Basophils % Nucleated RBC % Platelet Estimate Platelet Comment PT with INR INR PTT (Actin FS) VBG pH POC VBG pCO2 POC VBG pO2 VBG HCO3 VBG O2 Sat ([place]ly) VBG Base Excess Sodium Potassium Chloride Carbon Dioxide Anion Gap BUN Creatinine Est GFR (CKD-EPI)AfAm Est GFR (CKD-EPI)NonAf POC Glucometer 249 Random Glucose Hemoglobin A1c % 13.0 H Calcium Total Bilirubin AST ALT Alkaline Phosphatase Creatine Kinase Troponin I Total Protein Albumin Beta-Hydroxybutyrate TSH Urine Color Urine Appearance Urine pH Ur Specific [place] Urine Protein Urine Glucose (UA) Urine Ketones Urine Blood Urine Nitrite Urine Bilirubin Urine Urobilinogen Ur Leukocyte Esterase Urine WBC (Auto) Urine RBC (Auto) Urine Casts (Auto) U Epithel Cells (Auto) Urine Bacteria (Auto) S1 S2 RRR Lungs clear Abd- soft, NT no edema A/P Uncontrolled DM-- hyperosmolar state HTN Obesity SLE -- iv fluids-- vigorous -- start Levemir -- A1C noted -- Endocrinology eval -- Dietary and med compliance discussed , along with checking her sugars frequently -- continue with meds -- restart Metformin Problem List - Problems (1) HLD (hyperlipidemia) Code(s): E78.5 - HYPERLIPIDEMIA, UNSPECIFIED (2) Hyperglycemia Code(s): R73.9 - HYPERGLYCEMIA, UNSPECIFIED (3) Hyperosmolar non-ketotic state in patient with type 2 diabetes mellitus Code(s): E11.00 - TYPE 2 DIAB W HYPROSM W/O NONKET HYPRGLY-[facility]OS [facility] (4) Lupus (systemic lupus erythematosus) Code(s): M32.9 - SYSTEMIC LUPUS ERYTHEMATOSUS, UNSPECIFIED (5) HTN (hypertension) Code(s): I10 - ESSENTIAL (PRIMARY) HYPERTENSION
[2019-10-23] MEDS: INSULIN SLIDING SCALE (NOVOLOG) 1 VIAL SQ SCH ×4 (11:42→21:58)
[2019-10-23] MEDS ORDERED: INSULIN (LEVEMIR) 100 UNITS/ML UNITS SQ SCH (12:30)
[2019-10-23] MEDS: ENALAPRIL MALEATE 10 MG TABLET (FP) PO SCH (13:33)
--- NOTE | 2019-10-23 14:41 | PN ---
Progress Note (short form) - Note Progress Note: Called by patients RN for IV placement after multiple unsuccessful attempts made at peripheral line placement by multiple RNs. Patient in need of IV for _hydration/treatment, admitted for elevated blood glucose . Patient prepped using typical sterile fashion. ___22__ gauge peripheral IV placed into _right wrist . Line flushes easily with venous blood return and was irrigated with ____10____mls NS. Line secured in place. Pt. tolerated procedure well. RN aware.
--- NOTE | 2019-10-23 15:11 | EKG ---
Test Reason : Blood Pressure : / mmHG Vent. Rate : 095 BPM Atrial Rate : 095 BPM P-R Int : 150 ms QRS Dur : 090 ms QT Int : 376 ms P-R-T Axes : 051 -52 039 degrees QTc Int : 472 ms NORMAL SINUS RHYTHM POSSIBLE LEFT ATRIAL ENLARGEMENT LEFT ANTERIOR FASCICULAR BLOCK CANNOT RULE OUT ANTERIOR INFARCT (CITED ON OR BEFORE 15-JUN-2018) ABNORMAL ECG WHEN COMPARED WITH ECG OF 15-JUN-2018 10:21, LEFT ANTERIOR FASCICULAR BLOCK IS NOW PRESENT Confirmed by JANELL BEAL MD ([id number]) on 10/23/2019 3:11:02 PM Referred By: Confirmed By:JANELL BEAL MD
[2019-10-23] MEDS: metFORMIN HCL 500 MG TABLET (FP) PO SCH (18:43)
[2019-10-23] MEDS: INSULIN (LEVEMIR) 100 UNITS/ML UNITS SQ SCH (21:58)
--- NOTE | 2019-10-23 23:38 | CONSULT ---
Consult Consult Specialty:: ENDOCRINE Referred by:: LEILA HUA Reason for Consultation:: DMT2 - History of Present Illness Chief Complaint: HIGH SUGARS History of Present Illness: 59 y/o woman with a PMHx of DMT2,HTN, HLD, H Pylori, PUD, IBS, Lupus. Who presented with cough, dry skin, polydipsia, polyuria, nausea. she has had elevated bs,aware of lack of diet and diabetic control she feels from poor eating habits.she denies headache,dizzyness,cp. - Past Medical History Cardio/Vascular: Yes: HTN, Hyperlipdemia Gastrointestinal: Yes: Irritable Bowel Disease, Peptic Ulcer Disease, Other (H Pylori) ...LMP: 07/01/08 Rheumatology: Yes: Lupus - Past Surgical History Past Surgical History: Yes: Hernia Repair - Alcohol/Substance Use Hx Alcohol Use: No History of Substance Use: reports: None - Smoking History Smoking history: Former smoker Have you smoked in the past 12 months: No Aproximately how many cigarettes per day: 0 If you are a former smoker, when did you quit?: 1993 - Social History ADL: Independent Occupation: Disabled History of Recent Travel: No Home Medications - Allergies Allergies/Adverse Reactions: Allergies Allergy/AdvReac Type Severity Reaction Status Date / Time No Known Allergies Allergy Verified 10/22/19 19:35 - Home Medications Home Medications: Ambulatory Orders Aspirin 81 mg PO DAILY 10/23/19 Enalapril Maleate [Vasotec] 20 mg PO DAILY 10/23/19 Gabapentin 800 mg PO TID 10/23/19 Hydroxychloroquine Sulfate [Plaquenil] 200 mg PO DAILY 10/23/19 Metformin HCl [Glucophage] 500 mg PO BID 10/23/19 Nadolol [Corgard] 20 mg PO DAILY 10/23/19 Review of Systems - Review of Systems Constitutional: reports: Lethargy Eyes: reports: Blurred Vision HENT: reports: No Symptoms Neck: reports: Swollen Glands Respiratory: reports: Exercise Intolerance Gastrointestinal: reports: Bloating Genitourinary: reports: Frequency Breasts: reports: No Symptoms Reported Musculoskeletal: reports: Joint Swelling, Muscle Pain, Muscle Cramps, Muscle Weakness Neurological: reports: Numbness, Weakness Endocrine: reports: Unexplained Weight Gain Physical Exam Vital Signs: Vital Signs Temperature 97.8 F 10/23/19 21:45 Pulse Rate 58 L 10/23/19 21:45 Respiratory Rate 18 10/23/19 21:45 Blood Pressure 101/48 L 10/23/19 21:45 O2 Sat by Pulse Oximetry (%) 99 10/23/19 15:14 Constitutional: Yes: Calm Eyes: Yes: EOM Intact HENT: Yes: Normocephalic Neck: Yes: Trachea Midline, Thyromegaly Cardiovascular: Yes: Tachycardia Respiratory: Yes: CTA Bilaterally Gastrointestinal: Yes: WNL ...Rectal Exam: Yes: Deferred Renal/: Yes: WNL Musculoskeletal: Yes: Muscle Weakness Extremities: Yes: WNL Edema: No Neurological: Yes: Alert, Oriented Labs: CBC, BMP 10/22/19 20:40 10/23/19 03:20 Problem List - Problems (1) HLD (hyperlipidemia) Code(s): E78.5 - HYPERLIPIDEMIA, UNSPECIFIED (2) Hyperglycemia Code(s): R73.9 - HYPERGLYCEMIA, UNSPECIFIED (3) Hyperosmolar non-ketotic state in patient with type 2 diabetes mellitus Code(s): E11.00 - TYPE 2 DIAB W HYPROSM W/O NONKET HYPRGLY-HYPROS COMA ([facility]) (4) Hypocalcemia Code(s): E83.51 - HYPOCALCEMIA (5) Lupus (systemic lupus erythematosus) Code(s): M32.9 - SYSTEMIC LUPUS ERYTHEMATOSUS, UNSPECIFIED (6) Abdominal pain Code(s): R10.9 - UNSPECIFIED ABDOMINAL PAIN Qualifiers: Abdominal location: periumbilical Qualified Code(s): R10.33 - Periumbilical pain (7) Atypical chest pain Code(s): R07.89 - OTHER CHEST PAIN Assessment/Plan Current Active Problems HLD (hyperlipidemia) (Acute) Hyperglycemia (Acute) Hyperosmolar non-ketotic state in patient with type 2 diabetes mellitus (Acute) Hypocalcemia (Acute) Lupus (systemic lupus erythematosus) (Acute) Abnormal Lab Results 10/23/19 10/23/19 03:20 04:22 Anion Gap 7 L Random Glucose 403 H* Hemoglobin A1c % 13.0 H Calcium 7.9 L Alkaline Phosphatase 128 H Total Protein 6.2 L Albumin 3.1 L Laboratory Results - last 24 hr 10/22/19 10/23/19 10/23/19 23:53 01:11 03:18 Sodium Potassium Chloride Carbon Dioxide Anion Gap BUN Creatinine Est GFR (CKD-EPI)AfAm Est GFR (CKD-EPI)NonAf POC Glucometer 509 475 403 Random Glucose Hemoglobin A1c % Calcium Total Bilirubin AST ALT Alkaline Phosphatase Total Protein Albumin 10/23/19 10/23/19 10/23/19 03:20 04:12 04:22 Sodium 137 Potassium 3.8 Chloride 103 Carbon Dioxide 27 Anion Gap 7 L BUN 11.6 Creatinine 0.8 Est GFR (CKD-EPI)AfAm 93.53 Est GFR (CKD-EPI)NonAf 80.70 POC Glucometer 344 Random Glucose 403 H* Hemoglobin A1c % 13.0 H Calcium 7.9 L Total Bilirubin 0.6 AST 21 ALT 36 Alkaline Phosphatase 128 H Total Protein 6.2 L Albumin 3.1 L 10/23/19 10/23/19 10/23/19 07:33 11:41 16:49 Sodium Potassium Chloride Carbon Dioxide Anion Gap BUN Creatinine Est GFR (CKD-EPI)AfAm Est GFR (CKD-EPI)NonAf POC Glucometer 249 356 316 Random Glucose Hemoglobin A1c % Calcium Total Bilirubin AST ALT Alkaline Phosphatase Total Protein Albumin 10/23/19 21:49 Sodium Potassium Chloride Carbon Dioxide Anion Gap BUN Creatinine Est GFR (CKD-EPI)AfAm Est GFR (CKD-EPI)NonAf POC Glucometer 321 Random Glucose Hemoglobin A1c % Calcium Total Bilirubin AST ALT Alkaline Phosphatase Total Protein Albumin plan: levemir 35 units bid novolog ss metformin 1gm bid januvia 100mg /day diet nutrition thyroid sonogram outpatient
[2019-10-24] MEDS: SODIUM CHLORIDE 0.45% 1,000 ML IV SCH ×3 (06:39→22:23)
[2019-10-24] MEDS: GABAPENTIN 400 MG CAPSULE PO SCH ×3 (06:39→22:13)
[2019-10-24] MEDS: metFORMIN HCL 500 MG TABLET (FP) PO SCH ×2 (06:41→17:51)
[2019-10-24] MEDS: INSULIN SLIDING SCALE (NOVOLOG) 1 VIAL SQ SCH ×4 (06:44→22:13)
[2019-10-24] MEDS: INSULIN (LEVEMIR) 100 UNITS/ML UNITS SQ SCH ×2 (06:44→22:11)
[2019-10-24 09:13] LABS: BLOOD UREA NITROGEN 12.3 mg/dL (7-18); CALCIUM 8.2 mg/dL (8.5-10.1); CREATININE 0.6 mg/dL (0.55-1.3); POTASSIUM 3.6 mmol/L (3.5-5.1)
[2019-10-24] MEDS: ASPIRIN 81 MG CHEWABLE TABLETS PO SCH (09:58)
[2019-10-24] MEDS: NADOLOL 20 MG TABLET (FP) PO SCH (09:58)
[2019-10-24] MEDS: HYDROXYCHLOROQUINE SO4 200 MG TABLET (FP) PO SCH (09:58)
[2019-10-24] MEDS: HEPARIN NA (PORCINE) 5,000 UNITS/ML 1ML VIAL SQ SCH ×2 (09:59→22:12)
[2019-10-24] MEDS: ENALAPRIL MALEATE 10 MG TABLET (FP) PO SCH (09:59)
--- NOTE | 2019-10-24 12:40 | PN ---
Progress Note (short form) - Note Progress Note: pt seen/ examined chart is reviewed awake/ comfortable feels better Endo consult noted/ appreciated Vital Signs Temp 97.9 F 10/24/19 06:51 Pulse 60 10/24/19 06:51 Resp 18 10/24/19 06:51 BP 118/60 10/24/19 06:51 Pulse Ox 99 10/23/19 21:00 Intake & Output 10/23/19 10/24/19 10/24/19 23:59 11:59 23:59 Intake Total 1400 Balance 1400 Intake: IV 1400 1/2 Normal Saline 1,000 1400 ml @ 100 mls/hr IV ASDIR [facility] Rx#:[id number] Other: Voiding Method Toilet Toilet # Unmeasured Voids Void 2 Bowel Movement No No Active Medications Aspirin (Asa -) 81 mg PO DAILY [facility] Last Admin: 10/24/19 09:58 Dose: 81 mg Enalapril Maleate (Vasotec -) 20 mg PO DAILY [facility] Last Admin: 10/24/19 09:59 Dose: 20 mg Gabapentin (Neurontin -) 800 mg PO TID [facility] Last Admin: 10/24/19 06:39 Dose: Not Given Heparin Sodium (Porcine) (Heparin -) 5,000 unit SQ BID [facility] Last Admin: 10/24/19 09:59 Dose: 5,000 unit Hydroxychloroquine Sulfate (Plaquenil -) 200 mg PO DAILY [facility] Last Admin: 10/24/19 09:58 Dose: 200 mg Sodium Chloride (1/2 Normal Saline) 1,000 mls @ 100 mls/hr IV ASDIR [facility] Last Admin: 10/24/19 06:39 Dose: 100 mls/hr Sodium Chloride (1/2 Normal Saline) 1,000 mls @ 1,000 mls/hr IV ASDIR [facility] Last Admin: 10/24/19 09:58 Dose: 1,000 mls/hr Insulin Aspart (Novolog Vial Sliding Scale -) 1 vial SQ [facility]; Protocol Last Admin: 10/24/19 10:59 Dose: 9 units Insulin Detemir (Levemir Vial) 35 units SQ BID@0700,2200 [facility] Last Admin: 10/24/19 06:44 Dose: 35 units Metformin HCl (Glucophage -) 1,000 mg PO BID@0700,1630 [facility] Last Admin: 10/24/19 06:41 Dose: 1,000 mg Nadolol (Corgard -) 20 mg PO DAILY [facility] Last Admin: 10/24/19 09:58 Dose: 20 mg Neomycin/Polymyxin/Bacitracin (Neosporin Topical Ointment -) 1 applic TP DAILY [facility] Sitagliptin Phosphate (Januvia -) 100 mg PO DAILY@0700 [facility] Last Admin: 10/24/19 06:42 Dose: 100 mg CBC, BMP 10/22/19 20:40 10/24/19 07:41 Microbiology 10/22/19 21:50 Urine Culture - Final Urine - Urine Clean Catch Normal Urogenital Kayli Physical Exam Awake Comfortable. S1 S2 RRR Lungs clear Abd- soft, NT no edema A/P Uncontrolled DM-- hyperosmolar state HTN Obesity SLE - Better -- iv fluids-- vigorous -- started Levemir -- -- Endocrinology eval appreciated -- Dietary and med compliance discussed , along with checking her sugars frequently -- continue with meds -- restart Metformin - Diabetic teaching as well as need to learn how to inject Insulin - Monitor today - If better anticipate d/c tomorrow - will follow -D/W RN also Problem List - Problems (1) HLD (hyperlipidemia) Code(s): E78.5 - HYPERLIPIDEMIA, UNSPECIFIED (2) Hyperglycemia Code(s): R73.9 - HYPERGLYCEMIA, UNSPECIFIED (3) Hyperosmolar non-ketotic state in patient with type 2 diabetes mellitus Code(s): E11.00 - TYPE 2 DIAB W HYPROSM W/O NONKET HYPRGLY-HYPROS COMA ([facility]) (4) Lupus (systemic lupus erythematosus) Code(s): M32.9 - SYSTEMIC LUPUS ERYTHEMATOSUS, UNSPECIFIED (5) HTN (hypertension) Code(s): I10 - ESSENTIAL (PRIMARY) HYPERTENSION
[2019-10-24 15:04] VITALS: BMI 42.9
[2019-10-24] MEDS: BACITRACIN/POLYMYXIN B SULFATE 15 GM TUBE TP SCH (17:54)
--- NOTE | 2019-10-24 23:10 | PN ---
Progress Note (short form) - Note Progress Note: high sugars despite improve breathing Current Active Problems HLD (hyperlipidemia) (Acute) Hyperglycemia (Acute) Hyperosmolar non-ketotic state in patient with type 2 diabetes mellitus (Acute) Hypocalcemia (Acute) Lupus (systemic lupus erythematosus) (Acute) Abnormal Lab Results 10/24/19 07:41 Random Glucose 235 H Calcium 8.2 L Laboratory Results - last 24 hr 10/24/19 10/24/19 10/24/19 06:40 07:41 10:57 Sodium 140 Potassium 3.6 Chloride 107 Carbon Dioxide 24 Anion Gap 8 BUN 12.3 Creatinine 0.6 Est GFR (CKD-EPI)AfAm 115.63 Est GFR (CKD-EPI)NonAf 99.77 POC Glucometer 249 286 Random Glucose 235 H Calcium 8.2 L 10/24/19 10/24/19 17:15 22:09 Sodium Potassium Chloride Carbon Dioxide Anion Gap BUN Creatinine Est GFR (CKD-EPI)AfAm Est GFR (CKD-EPI)NonAf POC Glucometer 225 205 Random Glucose Calcium plan: levemir increase to 40 iu bid bgm achs novolog scale Problem List - Problems (1) HLD (hyperlipidemia) Code(s): E78.5 - HYPERLIPIDEMIA, UNSPECIFIED (2) Hyperglycemia Code(s): R73.9 - HYPERGLYCEMIA, UNSPECIFIED (3) Hyperosmolar non-ketotic state in patient with type 2 diabetes mellitus Code(s): E11.00 - TYPE 2 DIAB W HYPROSM W/O NONKET HYPRGLY-HYPROS COMA ([facility]) (4) Hypocalcemia Code(s): E83.51 - HYPOCALCEMIA (5) Lupus (systemic lupus erythematosus) Code(s): M32.9 - SYSTEMIC LUPUS ERYTHEMATOSUS, UNSPECIFIED (6) Abdominal pain Code(s): R10.9 - UNSPECIFIED ABDOMINAL PAIN Qualifiers: Abdominal location: periumbilical Qualified Code(s): R10.33 - Periumbilical pain (7) Atypical chest pain Code(s): R07.89 - OTHER CHEST PAIN
[2019-10-25] MEDS ORDERED: SODIUM CHLORIDE 0.45% 1,000 ML IV SCH (04:30)
[2019-10-25] MEDS: SODIUM CHLORIDE 0.45% 1,000 ML IV SCH (04:32)
[2019-10-25] MEDS ORDERED: INSULIN (LEVEMIR) 100 UNITS/ML UNITS SQ SCH (07:00)
[2019-10-25] MEDS: GABAPENTIN 400 MG CAPSULE PO SCH ×2 (07:14→13:17)
[2019-10-25] MEDS: INSULIN SLIDING SCALE (NOVOLOG) 1 VIAL SQ SCH ×2 (07:15→11:54)
[2019-10-25] MEDS ORDERED: PT OWN MED DRAWER 7, Y5N ONE ×2 (08:12→08:14)
[2019-10-25] MEDS: metFORMIN HCL 500 MG TABLET (FP) PO SCH (08:17)
[2019-10-25] MEDS: HEPARIN NA (PORCINE) 5,000 UNITS/ML 1ML VIAL SQ SCH (10:52)
[2019-10-25] MEDS: HYDROXYCHLOROQUINE SO4 200 MG TABLET (FP) PO SCH (10:53)
[2019-10-25] MEDS: BACITRACIN/POLYMYXIN B SULFATE 15 GM TUBE TP SCH (10:53)
[2019-10-25] MEDS: ASPIRIN 81 MG CHEWABLE TABLETS PO SCH (10:53)
[2019-10-25 10:59] VITALS: BP 141/89; PULSE 74; TEMP 97.4
[2019-10-25] MEDS: NADOLOL 20 MG TABLET (FP) PO SCH (11:22)
[2019-10-25] MEDS: ENALAPRIL MALEATE 10 MG TABLET (FP) PO SCH (11:22)
--- NOTE | 2019-10-25 11:50 | DS ---
Physical Examination Vital Signs: Vital Signs Temperature 97.4 F L 10/25/19 10:58 Pulse Rate 74 10/25/19 10:58 Respiratory Rate 18 10/25/19 10:58 Blood Pressure 141/89 10/25/19 10:58 O2 Sat by Pulse Oximetry (%) 99 10/24/19 21:00 Findings/Remarks: Pt seen/ examined . feels well b sugar better afebrile Constitutional: Yes: No Distress, Obese Eyes: Yes: Conjunctiva Clear Neck: Yes: Supple Cardiovascular: Yes: Regular Rate and Rhythm Respiratory: Yes: CTA Bilaterally Gastrointestinal: Yes: Abdomen, Obese Edema: No Neurological: Yes: Alert Psychiatric: Yes: Alert Labs: CBC, BMP 10/22/19 20:40 10/24/19 07:41 Discharge Summary Problems reviewed: Yes Reason For Visit: UNCONTROLLED DN WITH HYPEROSMOLAR NON KETONIC Current Active Problems HLD (hyperlipidemia) (Acute) Hyperglycemia (Acute) Hyperosmolar non-ketotic state in patient with type 2 diabetes mellitus (Acute) Hypocalcemia (Acute) Lupus (systemic lupus erythematosus) (Acute) Hospital Course: Better Compliance stressed Counselled about Diabetes Monitor D/c home f/u in office this week with BGM Pt in agreement D/W RN also Meds reconcilled Meds sent to Pharmacy. Condition: Stable - Instructions Diet, Activity, Other Instructions: do finger stick before meals and bedtime, give 5 units novolog insulin sq. hold if fingerstick below 90 Referrals: Morenita Rios MD [Primary Care Provider] - Disposition: HOME - Home Medications Comprehensive Discharge Medication List: Ambulatory Orders Aspirin 81 mg PO DAILY 10/23/19 Enalapril Maleate [Vasotec] 20 mg PO DAILY 10/23/19 Gabapentin 800 mg PO TID 10/23/19 Hydroxychloroquine Sulfate [Plaquenil] 200 mg PO DAILY 10/23/19 Nadolol [Corgard] 20 mg PO DAILY 10/23/19 Bacitracin/Polymyxin Ointment [Polysporin Ointment -] 1 applic TP DAILY #1 tube 10/25/19 Insulin (Levemir) [Levemir Vial] 40 units SQ BID@0700,2200 #1 units 10/25/19 Insulin Sliding Scale [Novolog Vial Sliding Scale -] 1 vial SQ ACHS 30 Days #1 units 10/25/19 Sitagliptin Phosphate [Januvia -] 100 mg PO DAILY@0700 #30 tab 10/25/19 metFORMIN HCL [Glucophage -] 1,000 mg PO BID@0700,1630 30 Days #60 tablet
== END 2019-10-25 16:09 | disposition home or self-care (01) | DRG 638 ==
LOC: JER 19:09 → JERBED 22:28 → J5S 10-23 08:13
PROVIDERS: ADMIT Internal Medicine; ATTEND Internal Medicine
DX: E11.00 Type 2 diabetes mellitus with hyperosmolarity without nonketotic hyperglycemic-hyperosmolar coma (NKHHC) (principal); Z68.41 Body mass index [BMI] 40.0-44.9, adult; E66.01 Morbid (severe) obesity due to excess calories; I10 Essential (primary) hypertension; E78.5 Hyperlipidemia, unspecified; E11.65 Type 2 diabetes mellitus with hyperglycemia; K27.9 Peptic ulcer, site unspecified, unspecified as acute or chronic, without hemorrhage or perforation; K58.9 Irritable bowel syndrome, unspecified; M32.9 Systemic lupus erythematosus, unspecified; Z79.84 Long term (current) use of oral hypoglycemic drugs; E83.51 Hypocalcemia; R07.89 Other chest pain
CPT/HCPCS: 36415; 71046-TC-FY; 80048; 80053; 81003; 82010; 82550; 82803; 82962; 83036; 84443; 84484; 85025; 85610; 85730; 87086; 93005; 93010; 99285-25; J1644

== ENCOUNTER → 2020-11-08 | Day surgery (SDC) | payer MEDICARE, OTHER | END | disposition home or self-care (01) | LOC: JRADIR 10:13 | PROVIDERS: ATTEND Internal Medicine | PROC: 0GBG3ZX Excision of Left Thyroid Gland Lobe, Percutaneous Approach, Diagnostic (ICD-10-PCS; principal; 2020-11-08) | DX: E04.1 Nontoxic single thyroid nodule (principal) | CPT/HCPCS: 76942 ==

== ENCOUNTER 2023-05-02 04:14 | Day surgery (SDC) | payer MEDICARE, OTHER ==
[2023-04-30 13:37] VITALS: BMI 40.4
[2023-05-02 08:49] VITALS: TEMP 98.9
[2023-05-02 10:31] VITALS: BP 118/67; PULSE 69; RESP 20
== END 2023-05-02 09:45 | disposition home or self-care (01) ==
LOC: JASU-ENDO 04:14
PROVIDERS: ATTEND Internal Medicine Gastroenterology
PROC: 0DB98ZX Excision of Duodenum, Via Natural or Artificial Opening Endoscopic, Diagnostic (ICD-10-PCS; 2023-05-02)
PROC: 0DB78ZX Excision of Stomach, Pylorus, Via Natural or Artificial Opening Endoscopic, Diagnostic (ICD-10-PCS; 2023-05-02)
PROC: 0DB68ZX Excision of Stomach, Via Natural or Artificial Opening Endoscopic, Diagnostic (ICD-10-PCS; 2023-05-02)
PROC: 0DBL8ZX Excision of Transverse Colon, Via Natural or Artificial Opening Endoscopic, Diagnostic (ICD-10-PCS; principal; 2023-05-02 08:00)
DX: Z12.11 Encounter for screening for malignant neoplasm of colon (principal); D12.3 Benign neoplasm of transverse colon; K57.30 Diverticulosis of large intestine without perforation or abscess without bleeding; K64.8 Other hemorrhoids; K29.00 Acute gastritis without bleeding; K29.80 Duodenitis without bleeding; B96.81 Helicobacter pylori [H. pylori] as the cause of diseases classified elsewhere
CPT/HCPCS: 82962

== ENCOUNTER 2024-07-09 06:02 | Day surgery (SDC) | payer MEDICARE, OTHER ==
[2024-07-01 13:57] VITALS: BMI 39.2
[2024-07-09] MEDS ORDERED: MIDAZOLAM HCL 2 MG/2 ML SINGLE DOSE VIAL ONE ×3 (07:11→09:13)
[2024-07-09] MEDS ORDERED: BUPIVACAINE LIPOSOME/PF (EXPAREL) 266 MG/20 ML VIAL ONE (07:14)
[2024-07-09] MEDS ORDERED: BUPIVACAINE HCL/PF 0.5% (5MG/ML) 10 ML VIAL ONE ×2 (07:14→07:49)
[2024-07-09] MEDS ORDERED: ACETAMINOPHEN INJECTION 100 ML ONE (07:15)
[2024-07-09] MEDS ORDERED: ONDANSETRON 4 MG/2 ML VIAL IVPUSH PRN (07:19)
[2024-07-09] MEDS ORDERED: oxyCODONE HCL 5 MG TABLET PO PRN (07:19)
[2024-07-09] MEDS ORDERED: PROPOFOL 20 ML ONE ×3 (08:10→09:53)
[2024-07-09] MEDS ORDERED: ceFAZolin SODIUM 1 GM VIAL ONE ×3 (08:21)
[2024-07-09] MEDS ORDERED: ONDANSETRON 4 MG/2 ML VIAL ONE (08:26)
[2024-07-09] MEDS ORDERED: DEXAMETHASONE SOD PHOSPHATE 4 MG/1 ML VIAL ONE (08:26)
[2024-07-09] MEDS ORDERED: TRANEXAMIC ACID 1000 MG/10 ML VIAL ONE ×2 (08:36)
[2024-07-09] MEDS ORDERED: MAGNESIUM HYDROX 2400MG/30ML ORAL SUSPENSION 30 ML CUP PO PRN (10:33)
[2024-07-09] MEDS: oxyCODONE HCL 5 MG TABLET PO PRN (12:33)
[2024-07-09] MEDS: LACTATED RINGERS SOLUTION 1,000 ML IV SCH (12:36)
[2024-07-09] MEDS: metFORMIN HCL 500 MG TABLET (FP) PO SCH (15:54)
[2024-07-09] MEDS: CEFAZOLIN 2 GM in DEXTROSE 5%-WATER - 100 ML IVPB ONE (16:14)
[2024-07-09] MEDS: ACETAMINOPHEN 1000 MG/100 ML BAG IVPB SCH (17:16)
[2024-07-09] MEDS: CEFAZOLIN SODIUM IVPB SCH (19:31)
[2024-07-09] MEDS: WATER IVPB SCH (19:31)
[2024-07-09] MEDS: DEXTROSE 5% IVPB SCH (19:31)
[2024-07-09] MEDS: SENNOSIDES/DOCUSATE COMBO (SENNA PLUS) TABLET (UD) PO SCH (21:00)
[2024-07-09] MEDS: ASPIRIN 81 MG CHEWABLE TABLETS PO SCH (21:00)
[2024-07-09] MEDS: DEXAMETHASONE 4 MG TABLET (FP) PO SCH (21:00)
[2024-07-09] MEDS: ROSUVASTATIN CA 5 MG TABLET PO SCH (21:00)
[2024-07-09] MEDS: FAMOTIDINE 20 MG TABLET PO SCH (21:00)
[2024-07-09] MEDS: TRANEXAMIC ACID 1000 MG/10 ML VIAL IVPB SCH (21:10)
[2024-07-09] MEDS ORDERED: TRANEXAMIC ACID - 1,000 MG in SODIUM CHLORIDE 50 ML IVPB SCH (22:00)
[2024-07-09] MEDS: HYDROmorphone HCl 2 MG/ML VIAL IVPUSH SCH (22:41)
[2024-07-09] MEDS: ONDANSETRON 4 MG/2 ML VIAL IVPUSH PRN (23:38)
[2024-07-10] MEDS: MULTIVITAMINS (DAILY MVI) TABLET (FP) PO SCH (09:28)
[2024-07-10] MEDS: ENALAPRIL MALEATE 10 MG TABLET PO SCH (09:29)
[2024-07-10] MEDS: MAG HYDROX/AL HYDROX/SIMETH 30 ML UNIT-DOSE CUP PO PRN (09:29)
[2024-07-10] MEDS: HYDROXYCHLOROQUINE SO4 200 MG TABLET (FP) PO SCH (09:29)
[2024-07-10] MEDS: NADOLOL 20 MG TABLET (FP) PO SCH (09:29)
[2024-07-10 14:25] VITALS: BP 127/61; PULSE 64; RESP 17; TEMP 98.1
== END 2024-07-10 16:34 | disposition home or self-care (01) ==
LOC: FASUSAT 06:02 → FM/S 12:29 → FASUSAT 07-10 16:34
PROVIDERS: ATTEND Orthopaedic Surgery
PROC: 0SRC0J9 Replacement of Right Knee Joint with Synthetic Substitute, Cemented, Open Approach (ICD-10-PCS; principal; 2024-07-09 08:28)
DX: M17.11 Unilateral primary osteoarthritis, right knee (principal)
CPT/HCPCS: 27447; C1776; 73560-TC-RT-FY; 82962; 94760; 97010-GP; 97116-GP; 97162-GP; J0131

== ENCOUNTER → 2024-09-10 | Day surgery (SDC) | payer MEDICARE, OTHER ==
[2024-09-08 12:54] VITALS: BMI 38.3
[~2024-09-10] MED LIST: ACETAMINOPHEN 1000 MG/100 ML BAG IVPB ONE; BUPIVACAINE HCL/PF 0.5% (5 MG/ML) 30 ML VIAL IJ ONE; DEXAMETHASONE SOD PHOSPHATE 10 MG/1 ML VIAL ONE; LACTATED RINGERS SOLUTION 1,000 ML IV SCH; MIDAZOLAM HCL 2 MG/2 ML SINGLE DOSE VIAL ONE; ONDANSETRON 4 MG/2 ML VIAL IVPUSH PRN; PROPOFOL 20 ML ONE
[2024-09-10 08:54] VITALS: RESP 18; TEMP 97.4
[2024-09-10 09:19] VITALS: BP 125/65; PULSE 69
== END | disposition home or self-care (01) ==
LOC: FASU 05:56
PROVIDERS: ATTEND Orthopaedic Surgery
PROC: 0SSCXZZ Reposition Right Knee Joint, External Approach (ICD-10-PCS; principal; 2024-09-10 07:45)
DX: M25.661 Stiffness of right knee, not elsewhere classified (principal)
CPT/HCPCS: 82962; 94760; J1100